=== PATIENT | male | born 1985 | race African-American/Black ===

== ENCOUNTER 2016-08-14 01:29 | Inpatient (IN) | payer OTHER ==
[~2016-08-14] VITALS: Ht 188 cm; Wt 71.2 kg
[~2016-08-14 01:29] MED LIST: ACIDOPHILUS1 EAC4 PER TUBE; ALBUTEROL0.63 MG/3 INH; ALBUTEROL2.5 MG/0.1 INH; AMOXICILLIN PER TUBE; ARTIFICIAL TEA1 EACH OPHTHALMIC; ASPIRIN325 PER TUBE; ATIVAN0.5 MG PER TUBE; BISACODYL SUPP10 MG RECTAL; CHOLESTYRAMINE P4 GM PER TUBE; FAMOTIDINE PER TUBE; FAMOTIDINE40 MG/5 ML PER TUBE; GLUCERNA 1.21500 ML PO; JUVEN PACKET1 EACH PER TUBE; KEPPRA 100100 MG/M1 PER TUBE; LEVAQUIN 500 M500 M1 PER TUBE; LEVETIRACETA PER TUBE; LIORESAL 10 MG10 MG PER TUBE; MAPAP160 MG/51 PER TUBE; MIRALAX17 GM PO; MULTI-DELYN5 ML PER TUBE; NATURAL BALANCE15 M1; ONDANSETRON HCL4 M2 PER TUBE; PERIDEX 0.12%473 M1 PO; PROPRANOLO40 MG/5 ML PER TUBE; VITAMIN C500 MG/15 PER TUBE; VITAMINC500 PER TUBE; ZINC SULFATE 2220 M1 PER TUBE; ZOFRAN4 MG/5 ML PER TUBE; ZOSYN 3.3753.375 GM IV; [UNRECOGNIZED DRUG - SUPPLY] TOP
[2016-08-14 01:36] VITALS: BP 118/81
[2016-08-14 02:08] LABS: EOSINOPHILS 3.4 % (0.0-3.0); HEMOGLOBIN 10.9 gm/dL (14.0-18.0)
[2016-08-14 02:10] LABS: ABSOLUTE NEUTROPHILS 8.7 thou/uL (1.4-8.2); BASOPHILS 1.5 % (0.0-2.0); HEMATOCRIT 35.3 % (42.0-52.0); LYMPHOCYTES 29.2 % (24.0-44.0); MCH 23.1 pg (26.0-34.0); MCHC 30.9 % (28.0-37.0); MONOCYTES 6.1 % (1.0-8.0); PLATELET COUNT 284 thou/uL (150-400); POLYS 59.8 % (36.0-66.0); RBC 4.71 mil/uL (4.50-6.00); WBC 14.5 thou/uL (4.0-11.0)
[2016-08-14 02:12] LABS: MANUAL DIFF NO
[2016-08-14 02:13] LABS: CALCIUM 9.2 mg/dL (8.5-10.1); CREATININE 0.6 mg/dL (0.6-1.3); POTASSIUM 4.2 mmol/L (3.5-5.1)
[2016-08-14] MEDS ORDERED: VITAMINC500 PER TUBE (02:36)
[2016-08-14] MEDS ORDERED: METFORMIN HCL500 M2 PO (03:07)
[2016-08-14 03:33] LABS: URINE BILIRUBIN NEGATIVE (Negative); URINE BLOOD 3+ (Negative); URINE COLOR YELLOW; URINE GLUCOSE-RANDOM* NEGATIVE (Negative); URINE KETONES NEGATIVE (Negative); URINE LEUKOCYTES-REFLEX NEGATIVE (Negative); URINE PROTEIN (DIPSTICK) NEGATIVE (Negative); URINE SPECIFIC GRAVITY 1.025 (1.003-1.035); URINE UROBILINOGEN 0.2 E.U./dl (0.2-1.0)
[2016-08-14 03:54] LABS: ANISOCYTOSIS 1+; HYPOCHROMASIA 1+; LARGE PLATELETS OCCASIONAL; MICROCYTES 2+
[2016-08-14 03:59] LABS: SQUAMOUS 0-3 Few /LPF (0-3); URINE RBC >20 Many /HPF (0-2); URINE WBC-REFLEX 0-5 Rare /HPF (0-5)
[2016-08-14 04:00] LABS: CASTS None Seen /LPF (None Seen); CRYSTALS None Seen /LPF (None Seen)
[2016-08-14 04:41] VITALS: BP 120/79
[2016-08-14 08:00] VITALS: BP 115/78
[2016-08-14 12:15] VITALS: BP 128/74
[2016-08-14 15:45] VITALS: BP 107/78
[2016-08-14 20:25] VITALS: BP 113/73
[2016-08-15 03:59] LABS: ABSOLUTE NEUTROPHILS 5.4 thou/uL (1.4-8.2); BASOPHILS 0.5 % (0.0-2.0); EOSINOPHILS 4.9 % (0.0-3.0); HEMATOCRIT 31.5 % (42.0-52.0); HEMOGLOBIN 9.7 gm/dL (14.0-18.0); LYMPHOCYTES 32.1 % (24.0-44.0); MCHC 30.9 % (28.0-37.0); MCV 74.3 fL (80.0-100.0); MONOCYTES 5.1 % (1.0-8.0); PLATELET COUNT 220 thou/uL (150-400); POLYS 57.4 % (36.0-66.0); RBC 4.24 mil/uL (4.50-6.00); RDW 17.7 % (10.5-14.5); WBC 9.4 thou/uL (4.0-11.0)
[2016-08-15 04:16] LABS: MANUAL DIFF NO
[2016-08-15 04:27] LABS: ALBUMIN 2.4 g/dL (3.4-5.0); CALCIUM 8.6 mg/dL (8.5-10.1); CREATININE 0.5 mg/dL (0.6-1.3); POTASSIUM 3.9 mmol/L (3.5-5.1); TOTAL BILIRUBIN 0.4 mg/dL (<0.1-1.0); TOTAL PROTEIN 8.7 g/dL (6.4-8.2)
[2016-08-15 04:52] VITALS: BP 110/73
[2016-08-15 07:34] LABS: PLATELET ESTIMATE NORMAL
[2016-08-15 07:36] LABS: ANISOCYTOSIS 1+; HYPOCHROMASIA 1+; MACROCYTES 1+
[2016-08-15 08:00] VITALS: BP 164/88
[2016-08-15 11:00] VITALS: BP 150/85
[2016-08-15 19:46] VITALS: BP 147/81
[2016-08-16 06:09] VITALS: BP 129/83
[2016-08-16 08:00] VITALS: BP 151/93
[2016-08-16 08:02] LABS: ABSOLUTE NEUTROPHILS 5.3 thou/uL (1.4-8.2); BASOPHILS 1.1 % (0.0-2.0); EOSINOPHILS 4.7 % (0.0-3.0); HEMATOCRIT 33.9 % (42.0-52.0); HEMOGLOBIN 10.8 gm/dL (14.0-18.0); LYMPHOCYTES 28.8 % (24.0-44.0); MCH 23.3 pg (26.0-34.0); MCHC 31.8 % (28.0-37.0); MCV 73.3 fL (80.0-100.0); MONOCYTES 5.7 % (1.0-8.0); PLATELET COUNT 239 thou/uL (150-400); POLYS 59.7 % (36.0-66.0); RBC 4.63 mil/uL (4.50-6.00); WBC 8.9 thou/uL (4.0-11.0)
[2016-08-16 08:08] LABS: MANUAL DIFF NO
[2016-08-16 08:17] LABS: ALBUMIN 2.7 g/dL (3.4-5.0); CALCIUM 8.9 mg/dL (8.5-10.1); CREATININE 0.5 mg/dL (0.6-1.3); PHOSPHORUS 3.2 mg/dL (2.5-4.9); POTASSIUM 3.9 mmol/L (3.5-5.1)
[2016-08-16 10:07] LABS: ANISOCYTOSIS 1+; HYPOCHROMASIA 1+; MICROCYTES 2+; POLYCHROMASIA OCCASIONAL
[2016-08-16 16:00] VITALS: BP 137/61
[2016-08-16 20:15] VITALS: BP 137/64
[2016-08-17 05:51] VITALS: BP 159/74
[2016-08-17 08:23] LABS: ALBUMIN 2.8 g/dL (3.4-5.0); CALCIUM 8.9 mg/dL (8.5-10.1); CREATININE 0.6 mg/dL (0.6-1.3); MAGNESIUM 2.2 mg/dL (1.8-2.4); POTASSIUM 4.3 mmol/L (3.5-5.1); TOTAL BILIRUBIN 0.3 mg/dL (<0.1-1.0); TOTAL PROTEIN 9.1 g/dL (6.4-8.2)
[2016-08-17 17:55] VITALS: BP 138/72
[2016-08-17 21:00] VITALS: BP 121/68
[2016-08-18 01:45] VITALS: BP 92/58
[2016-08-18 05:30] VITALS: BP 106/68
[2016-08-18 06:00] VITALS: BP 128/75
[2016-08-18 08:17] VITALS: BP 99/59
[2016-08-18] MEDS ORDERED: AUGMENTIN400 MG/53 PER TUBE (10:15)
== END 2016-08-18 15:07 | DRG 871 ==
LOC: ER 01:29 → EROBS 04:16 → 2N 04:16 → 4N 08-15 17:52
PROVIDERS: Emergency Medicine; Hospitalist
DX: A41.4 Sepsis due to anaerobes (principal); G82.50 Quadriplegia, unspecified; J18.9 Pneumonia, unspecified organism; E43 Unspecified severe protein-calorie malnutrition; N39.0 Urinary tract infection, site not specified; E87.0 Hyperosmolality and hypernatremia; J96.11 Chronic respiratory failure with hypoxia; J90 Pleural effusion, not elsewhere classified; D69.6 Thrombocytopenia, unspecified; E86.0 Dehydration; E11.22 Type 2 diabetes mellitus with diabetic chronic kidney disease; N18.9 Chronic kidney disease, unspecified; K21.9 Gastro-esophageal reflux disease without esophagitis; R41.82 Altered mental status, unspecified; L89.159 Pressure ulcer of sacral region, unspecified stage; S61.002A Unspecified open wound of left thumb without damage to nail, initial encounter; Y93.89 Activity, other specified; Z93.1 Gastrostomy status; Z89.612 Acquired absence of left leg above knee; Y92.89 Other specified places as the place of occurrence of the external cause; Z93.0 Tracheostomy status; Z68.20 Body mass index [BMI] 20.0-20.9, adult
CPT/HCPCS: 10081; 10790

== ENCOUNTER 2016-11-06 06:59 | Emergency (ER) | payer OTHER ==
[~2016-11-06] VITALS: Ht 180.3 cm; Wt 77.1 kg
[~2016-11-06 06:59] MED LIST changes: +AUGMENTIN400 MG/53 PER TUBE; +METFORMIN HCL500 M2 PO
== END 2016-11-06 07:10 | disposition home or self-care (01) ==
LOC: ER 06:59
DX: K94.23 Gastrostomy malfunction (principal); E11.22 Type 2 diabetes mellitus with diabetic chronic kidney disease; N18.9 Chronic kidney disease, unspecified; K21.9 Gastro-esophageal reflux disease without esophagitis; Z86.69 Personal history of other diseases of the nervous system and sense organs

== ENCOUNTER 2017-05-08 16:42 | Emergency (ER) | payer OTHER ==
[~2017-05-08] VITALS: Ht 182.9 cm; Wt 59.0 kg
[2017-05-08 16:44] VITALS: BP 110/75
[2017-05-08 17:34] LABS: ABSOLUTE NEUTROPHILS 8.5 thou/uL (1.4-8.2); EOSINOPHILS 2.6 % (0.0-3.0); HEMATOCRIT 44.6 % (42.0-52.0); HEMOGLOBIN 14.3 gm/dL (14.0-18.0); LYMPHOCYTES 28.7 % (24.0-44.0); MCH 24.8 pg (26.0-34.0); MCV 77.6 fL (80.0-100.0); MONOCYTES 5.4 % (1.0-8.0); PLATELET COUNT 226 thou/uL (150-400); POLYS 62.3 % (36.0-66.0); RBC 5.75 mil/uL (4.50-6.00); RDW 20.1 % (10.5-14.5); WBC 13.7 thou/uL (4.0-11.0)
[2017-05-08 17:42] LABS: MANUAL DIFF NO
[2017-05-08 17:47] LABS: CALCIUM 9.3 mg/dL (8.5-10.1); CREATININE 0.4 mg/dL (0.7-1.3); POTASSIUM 4.8 mmol/L (3.5-5.1)
[2017-05-08 17:49] LABS: INR 1.1; PROTIME 11.7 Seconds (9.3-11.4)
== END 2017-05-09 10:36 ==
LOC: ER 16:42 → EROBS 22:03 → ER 05-09 10:36
PROVIDERS: Emergency Medicine
DX: T82.898A Other specified complication of vascular prosthetic devices, implants and grafts, initial encounter (principal); Y92.89 Other specified places as the place of occurrence of the external cause

== ENCOUNTER 2017-08-25 15:51 | Inpatient (IN) | payer OTHER ==
[~2017-08-25] VITALS: Ht 180.3 cm; Wt 72.6 kg
--- NOTE | ~2017-08-25 | S ---
[facility] [place] [address] SURGICAL PATH RPT PROCEDURE Name: YULISSACOTY Room #: 407-P ADM IN M.R.#: [id number] Admission: 08/25/17 Date of : 85 Discharge: Report #: [id number] Path Case #: [id number] PATHOLOGY REPORT COLLECTION DATE: 08/28/2017 RECEIVED DATE: 08/28/2017 SUBMITTING PHYS: Dr. Ezra Lauren OTHER PHYS: Dr. Archie Palumbo SPECIMEN(S) RECEIVED: A.Peripheral smear * * * * * * * * * * * * FINAL DIAGNOSIS: Peripheral blood smear: - Moderate to severe normocytic to mildly microcytic anemia and mild thrombocytopenia. (see comment) COMMENT: Overall, the peripheral blood has moderate to severe normocytic to mildly microcytic anemia and mild thrombocytopenia. The WBC count and differential are within the normal reference ranges. The etiology of the findings is unclear based entirely on slide review. Potential causes of normocytic anemia include anemia of chronic disease, treated and/or compensated vitamin and mineral deficiencies, acute blood loss, dilutional, and primary bone marrow disorders. Potential causes of microcytic anemia include iron deficiency and thalassemia. Potential causes of thrombocytopenia include immune and non-immune platelet destruction, drug and/or toxic exposures, dilutional and primary bone marrow disorders. Correlation with clinical history and additional laboratory data is recommended. (CLW:; 08/31/2017) PATHOLOGIST: Jessica Clark M.D. REPORT ELECTRONICALLY SIGNED BY: Jessica Clark M.D. DATE/TIME: 08/31/2017 14:35 * * * * * * * * * * * * MICROSCOPIC DESCRIPTION: CBC Data (08/28/17): WBC 5,100 /uL, RBC 3.32, hemoglobin 8.8 g/dL, hematocrit 26.8%, MCV 80.7 fL, MCH 26.4 pg, MCHC 32.8 g/dL, RDW 16.6%. Platelet count 100,000 /uL. Automated white blood cell differential: segs 62.1%, lymphs 29.7%, monos 5.8%, eos 2.0%, and basos 0.4%. Peripheral Blood Smear: Cytomorphological examination of the Read's stained peripheral [address] [address] SURGICAL PATH RPT PROCEDURE Name: COTY SIMS Room #: 407-P ADM IN M.R.#: [id number] Admission: 08/25/17 Date of : 85 Discharge: Report #: [id number] Path Case #: [id number] blood smear confirms the provided data. Red blood cells show moderate to severe normocytic to mildly microcytic anemia with mild anisocytosis. No significant poikilocytosis is identified. No schistocytes or microspherocytes are seen. White blood cells are predominantly segmented neutrophils and are without significant dyspoiesis or significant left shift. Reactive changes are noted. Lymphocytes are predominantly small, round, and mature appearing with condensed chromatin and scant cytoplasm with admixed large granular lymphocytes and occasional reactive appearing lymphocytes. On scanning, no markedly atypical lymphoid cells are seen. Monocytes are mature. Platelets are mildly decreased in number and mainly normal in morphology with rare larger platelets noted. GROSS PATHOLOGY: Received are four peripheral blood smears (two Read's stained and two unstained) all labeled, Coty Sims. (CLW:mgr; 08/31/2017) CLINICAL HISTORY: 32 year-old man with anemia, thrombocytopenia, and fever. Morphologic review of the peripheral blood smear is requested by the patient's physician. INITIAL CPT CODE(S): A; [place] Professional services performed by [employer] at [facility] [address], [place] [address] Technical services performed by [employer] at [address] [place] [address], [address], [place] [address]. [facility] [address] [place] [address] PHONE: [phone] DIRECTOR: Lc Arriaza M.D. * * * END OF REPORT * * *
--- NOTE | ~2017-08-25 | EKG ---
[address] [address] ELECTROCARDIOGRAM REPORT Name: COTY DUENAS Room #: 407-P ADM IN M.R.#: [id number] Admission: 08/25/17 Attend Phys: Ezra Lauren MD Discharge: Date of : 85 Report #: [id number] THIS REPORT FOR: //name// [facility] Test Date: 2017-08-27 Test Time: 00:38:51 Pat Name: COTY DUENAS Department: Room: 407 P Gender: M [employer]: jacob : 1985 Requested By: Alycia Petty Order Number: [id number] MD: Sebastian Billings Measurements Intervals Sterling Rate: 130 P: 64 PA: 120 QRS: 5 QRSD: 76 T: -2 QT: 313 QTc: 460 Interpretive Statements Sinus tachycardia LVH by voltage No previous ECG available for comparison Electronically Signed On 08-27-2017 7:59:58 CLEARING HAND by Sebastian Billings [email or web address] <ELECTRONICALLY SIGNED> By: Sebastian Billings MD, [facility] 08/27/17 0759 0038 0038 Sebastian Billings MD, FACC /EPI
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
--- NOTE | ~2017-08-25 | HC ---
[facility] [place] [address] CONSULTATION Name: YULISSACOTY BO Room #: 407-P ADM IN M.R.#: [id number] Admission: 08/25/17 Attend Phys: Ezra Lauren MD Discharge: Date of : 85 Report #: [id number] THIS REPORT FOR: //name// CC: Cotyreed Palumbo Ezra Lauren DATE OF SERVICE: 08/26/2017 CHIEF COMPLAINT: Sacral and gluteal pressure ulcerations. HISTORY OF PRESENT ILLNESS: This is a 32-year-old male patient admitted to the hospital. He is from [facility]. He has a history of a trach and is contracted. He has previous left BKA and was noted to have multiple pressure ulcerations. He is admitted with fever and is currently being worked up for such. PAST MEDICAL HISTORY: Positive for tracheostomy and gastrostomy. He has a history of quadriplegia, contractures, left above-knee amputation, chronic kidney disease, chronic renal failure, chronic respiratory failure with hypoxia, thrombocytopenia, diabetes mellitus, gastroesophageal reflux disease and history of multiple pressure ulcerations. ALLERGIES: None. FAMILY HISTORY: Noncontributory. REVIEW OF SYSTEMS: Unobtainable due to the patient's medical condition. MEDICATIONS: The patient's medications include cholestyramine, baclofen, multivitamin, aspirin, ketaconazole, famotidine, guaifenesin, levetiracetam, morphine and propranolol. PHYSICAL EXAMINATION: VITAL SIGNS: At this time include pulse rate of 119, respiratory rate 21, blood pressure 122/63 and temperature 100.2. GENERAL: This is a chronically ill-appearing male patient who is minimally responsive. HEENT: Normocephalic. Nose and throat appear clear. NECK: Demonstrates tracheostomy. LUNGS: Coarse. HEART: Regular rhythm. ABDOMEN: Soft. Gastrostomy noted. GENITOURINARY: Pelvic region demonstrates what appears to be a stage 4 pressure ulceration to the left side of the sacral region. Bone is palpable in the base. There is a little bit of undermining. This area is surrounded by what appears to be stage 3 pressure ulceration and also noted to be a stage 3 pressure [facility] [address] [place] [address] CONSULTATION Name: COTY DUENAS Room #: 407-P ADM IN M.R.#: [id number] Admission: 08/25/17 Attend Phys: Ezra Lauren MD Discharge: Date of : 85 Report #: [id number] ulceration on the right gluteal region. EXTREMITIES: He has a healed left above-knee amputation. CLINICAL IMPRESSION: 1. Fever, possibly secondary to pressure ulcerations versus pulmonary versus urinary tract. 2. Stage 4 sacral pressure ulceration. 3. Stage 3 pressure ulcer in bilateral gluteal region. 4. Respiratory failure. 5. Diabetes mellitus. 6. Severe protein-calorie malnutrition. 7. Tracheostomy. 8. Quadriplegia with severe contractures. RECOMMENDATIONS: At this point in time, we will recommend packing the sacral pressure ulceration with silver alginate. We will recommend Xeroform gauze to the gluteal region as they bleed readily, so we will try this as a nonstick-type dressing. He will need to be turned and repositioned every 2 hours, need aggressive nutritional support for wound healing and a Prevalon boot or PRAFO boot to the right lower extremity. Questions have been answered. I appreciate being asked to see him in consultation. <ELECTRONICALLY SIGNED> By: Dre Chavez MD 08/27/17 0834 1859 [id number] Dre Chavez MD /nt
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
[~2017-08-25 15:51] MED LIST changes: +ARTIFICIAL TEAR15 M1 OPHTHALMIC; +ASPIR 8181 MG PER TUBE; +DIOCTO50 MG/5 ML PER TUBE; +HYDROCERIN LOT236 ML TOP; +KETOCONAZOLE15 GM TOP; +LEVETIRACE100 MG/1 M PER TUBE; +MSL20MG/ML SUBLING; +PROPRANOLOL 20M20 M1 PER TUBE; +ROBITUSSIN100 MG/53 PER TUBE; +[UNRECOGNIZED DRUG - OTHER] PER TUBE
[2017-08-25 15:52] VITALS: BP 105/66
[2017-08-25 16:08] LABS: URINE BILIRUBIN NEGATIVE (Negative); URINE BLOOD 2+ (Negative); URINE CLARITY CLEAR; URINE COLOR YELLOW; URINE GLUCOSE-RANDOM* NEGATIVE (Negative); URINE KETONES NEGATIVE (Negative); URINE LEUKOCYTES NEGATIVE (Negative); URINE NITRITE NEGATIVE (Negative); URINE PROTEIN (DIPSTICK) TRACE (Negative); URINE SPECIFIC GRAVITY 1.025 (1.005-1.035); URINE UROBILINOGEN 0.2 E.U./dl (0.2-1.0)
[2017-08-25 16:19] LABS: FINE GRANULAR CASTS 0-3 Few /LPF (None Seen); MUCUS 4-6 Moderate strn/LPF (None Seen); SQUAMOUS 0-3 Few /LPF (0-3)
[2017-08-25 16:20] LABS: AMORPHOUS URATES Many /LPF (None Seen); BACTERIA >30 Many /HPF (None Seen); URINE WBC 6-15 Few /HPF (0-5)
[2017-08-25 17:10] LABS: ABSOLUTE NEUTROPHILS 5.2 thou/uL (1.4-8.2); BASOPHILS 0.5 % (0.0-2.0); EOSINOPHILS 1.5 % (0.0-3.0); HEMATOCRIT 32.8 % (42.0-52.0); HEMOGLOBIN 10.5 gm/dL (14.0-18.0); MCH 26.2 pg (26.0-34.0); MCHC 31.9 g/dL (28.0-37.0); MCV 82.2 fL (80.0-100.0); MONOCYTES 4.2 % (1.0-8.0); POLYS 61.8 % (36.0-66.0); RBC 3.99 mil/uL (4.50-6.00); RDW 17.2 % (10.5-14.5); WBC 8.3 thou/uL (4.0-11.0)
[2017-08-25 17:18] LABS: CALCIUM 8.7 mg/dL (8.5-10.1); CREATININE 0.9 mg/dL (0.7-1.3); POTASSIUM 3.6 mmol/L (3.5-5.1)
[2017-08-25 17:24] LABS: ALBUMIN 2.2 g/dL (3.4-5.0); TOTAL BILIRUBIN 0.3 mg/dL (<0.1-1.0); TOTAL PROTEIN 7.7 g/dL (6.4-8.2)
[2017-08-25 17:54] LABS: PLATELET COUNT 72 thou/uL (150-400); PLATELET ESTIMATE DECREASED
[2017-08-25 17:55] LABS: ANISOCYTOSIS 2+; LARGE PLATELETS FEW; MICROCYTES 2+
[2017-08-25 17:56] LABS: MACROCYTES 1+; POLYCHROMASIA SLIGHT
[2017-08-25 19:50] VITALS: BP 108/45
[2017-08-26] VITALS: BP 108/45
[2017-08-26 04:48] LABS: ABSOLUTE NEUTROPHILS 3.5 thou/uL (1.4-8.2); BASOPHILS 0.3 % (0.0-2.0); EOSINOPHILS 2.4 % (0.0-3.0); HEMATOCRIT 24.5 % (42.0-52.0); MCH 26.5 pg (26.0-34.0); MCHC 32.3 g/dL (28.0-37.0); MCV 82.2 fL (80.0-100.0); MONOCYTES 4.9 % (1.0-8.0); POLYS 57.4 % (36.0-66.0); RBC 2.99 mil/uL (4.50-6.00); RDW 17.4 % (10.5-14.5)
[2017-08-26 04:51] LABS: HEMOGLOBIN 7.9 gm/dL (14.0-18.0)
[2017-08-26 05:00] LABS: CALCIUM 7.5 mg/dL (8.5-10.1); CREATININE 0.6 mg/dL (0.7-1.3); POTASSIUM 3.6 mmol/L (3.5-5.1)
[2017-08-26 06:01] LABS: LARGE PLATELETS FEW
[2017-08-26 06:03] LABS: ANISOCYTOSIS 1+; PLATELET COUNT 53 thou/uL (150-400); PLATELET ESTIMATE DECREASED
[2017-08-26 06:04] LABS: MICROCYTES 1+
[2017-08-26 07:42] VITALS: BP 118/65
[2017-08-26 15:48] VITALS: BP 122/63
[2017-08-26 20:00] VITALS: BP 111/62
[2017-08-27 00:28] LABS: BE(vivo) -3.7 mmol/L (-2 to +3); HCO3 20.9 mmol/L (22.0-26.0); PCO2 34.1 mmHg (35.0-45.0); PO2 263.6 mmHg (80.0-100.0); pH 7.405 (7.360-7.450); sO2 99.6 % (92.0-98.0)
[2017-08-27 05:17] LABS: ABSOLUTE NEUTROPHILS 3.4 thou/uL (1.4-8.2); BASOPHILS 0.9 % (0.0-2.0); EOSINOPHILS 1.5 % (0.0-3.0); HEMATOCRIT 27.3 % (42.0-52.0); HEMOGLOBIN 8.8 gm/dL (14.0-18.0); LYMPHOCYTES 20.5 % (24.0-44.0); MCH 26.6 pg (26.0-34.0); MCHC 32.3 g/dL (28.0-37.0); MCV 82.2 fL (80.0-100.0); MONOCYTES 5.8 % (1.0-8.0); POLYS 71.3 % (36.0-66.0); RBC 3.33 mil/uL (4.50-6.00); WBC 4.7 thou/uL (4.0-11.0)
[2017-08-27 05:24] LABS: CALCIUM 7.6 mg/dL (8.5-10.1); CREATININE 0.5 mg/dL (0.7-1.3); POTASSIUM 3.4 mmol/L (3.5-5.1)
[2017-08-27 06:00] VITALS: BP 110/62
[2017-08-27 06:10] LABS: ANISOCYTOSIS 1+; LARGE PLATELETS OCCASIONAL; PLATELET COUNT 68 thou/uL (150-400); PLATELET ESTIMATE DECREASED
[2017-08-27 06:11] LABS: POLYCHROMASIA OCCASIONAL
[2017-08-27 09:39] VITALS: BP 121/68
[2017-08-27 16:00] VITALS: BP 122/88
[2017-08-27 20:00] VITALS: BP 127/64
[2017-08-27 23:32] LABS: APTT 29.3 Seconds (24.5-32.8); FIBRINOGEN 438.2 mg/dL (210-360); INR 1.3; PROTIME 13.4 Seconds (9.3-11.4)
[2017-08-27 23:44] VITALS: BP 106/71
[2017-08-28 03:03] LABS: ABSOLUTE NEUTROPHILS 2.9 thou/uL (1.4-8.2); BASOPHILS 0.4 % (0.0-2.0); EOSINOPHILS 2.2 % (0.0-3.0); HEMATOCRIT 26.1 % (42.0-52.0); HEMOGLOBIN 8.4 gm/dL (14.0-18.0); LYMPHOCYTES 28.2 % (24.0-44.0); MCH 26.1 pg (26.0-34.0); MCHC 32.3 g/dL (28.0-37.0); MCV 80.8 fL (80.0-100.0); MONOCYTES 5.9 % (1.0-8.0); PLATELET COUNT 80 thou/uL (150-400); POLYS 63.3 % (36.0-66.0); RBC 3.23 mil/uL (4.50-6.00); RDW 16.5 % (10.5-14.5); WBC 4.5 thou/uL (4.0-11.0)
[2017-08-28 03:10] LABS: CALCIUM 7.7 mg/dL (8.5-10.1); CREATININE 0.5 mg/dL (0.7-1.3); MAGNESIUM 1.4 mg/dL (1.8-2.4)
[2017-08-28 03:15] LABS: POTASSIUM 2.6 mmol/L (3.5-5.1)
[2017-08-28 04:00] VITALS: BP 116/68
[2017-08-28 04:15] LABS: ANISOCYTOSIS 1+; LARGE PLATELETS OCCASIONAL
[2017-08-28 04:16] LABS: PLATELET ESTIMATE DECREASED
[2017-08-28 07:21] VITALS: BP 122/62
[2017-08-28 08:18] LABS: TSH 4.004 uIU/mL (0.358-3.740)
[2017-08-28 11:11] LABS: % SATURATION 22 % (20-39); IRON 39 ug/dL (65-175); TIBC 176 ug/dL (250-450)
[2017-08-28 16:05] VITALS: BP 94/42
[2017-08-28 19:32] LABS: MAGNESIUM 1.7 mg/dL (1.8-2.4)
[2017-08-28 19:47] LABS: POTASSIUM 2.8 mmol/L (3.5-5.1)
[2017-08-28 20:40] VITALS: BP 119/55
[2017-08-28 23:57] VITALS: BP 130/63
[2017-08-29 04:00] VITALS: BP 106/48
[2017-08-29 05:45] LABS: ABSOLUTE NEUTROPHILS 2.8 thou/uL (1.4-8.2); BASOPHILS 0.2 % (0.0-2.0); EOSINOPHILS 2.3 % (0.0-3.0); HEMATOCRIT 24.6 % (42.0-52.0); HEMOGLOBIN 8.2 gm/dL (14.0-18.0); LYMPHOCYTES 28.1 % (24.0-44.0); MCH 26.7 pg (26.0-34.0); MCHC 33.2 g/dL (28.0-37.0); MCV 80.4 fL (80.0-100.0); MONOCYTES 6.4 % (1.0-8.0); PLATELET COUNT 101 thou/uL (150-400); RBC 3.06 mil/uL (4.50-6.00); RDW 16.8 % (10.5-14.5); WBC 4.5 thou/uL (4.0-11.0)
[2017-08-29 06:07] LABS: CALCIUM 8.1 mg/dL (8.5-10.1); CREATININE 0.5 mg/dL (0.7-1.3); MAGNESIUM 1.9 mg/dL (1.8-2.4)
[2017-08-29 08:00] VITALS: BP 111/72
[2017-08-29 16:08] VITALS: BP 97/62
[2017-08-29 19:23] VITALS: BP 93/58
[2017-08-30 03:53] LABS: HEMATOCRIT 26.5 % (42.0-52.0); HEMOGLOBIN 8.6 gm/dL (14.0-18.0); MCH 26.3 pg (26.0-34.0); MCHC 32.6 g/dL (28.0-37.0); MCV 80.7 fL (80.0-100.0); RBC 3.28 mil/uL (4.50-6.00); RDW 16.8 % (10.5-14.5); WBC 5.3 thou/uL (4.0-11.0)
[2017-08-30 04:08] VITALS: BP 115/79
[2017-08-30 05:03] LABS: ALBUMIN 2.1 g/dL (3.4-5.0); CALCIUM 7.9 mg/dL (8.5-10.1); CREATININE 0.4 mg/dL (0.7-1.3); TOTAL BILIRUBIN 0.4 mg/dL (<0.1-1.0); TOTAL PROTEIN 6.9 g/dL (6.4-8.2)
[2017-08-30 07:39] VITALS: BP 100/50
[2017-08-30 15:29] VITALS: BP 109/54
[2017-08-30 19:44] VITALS: BP 119/70
[2017-08-30 23:38] VITALS: BP 112/64
[2017-08-31 01:55] LABS: HEMOGLOBIN 8.7 gm/dL (14.0-18.0); MCH 26.6 pg (26.0-34.0); MCHC 32.3 g/dL (28.0-37.0); MCV 82.3 fL (80.0-100.0); RBC 3.28 mil/uL (4.50-6.00); RDW 16.9 % (10.5-14.5); WBC 5.8 thou/uL (4.0-11.0)
[2017-08-31 02:13] LABS: ALBUMIN 2.1 g/dL (3.4-5.0); CALCIUM 7.9 mg/dL (8.5-10.1); CREATININE 0.5 mg/dL (0.7-1.3); POTASSIUM 3.6 mmol/L (3.5-5.1); TOTAL BILIRUBIN 0.2 mg/dL (<0.1-1.0); TOTAL PROTEIN 6.7 g/dL (6.4-8.2)
[2017-08-31 03:55] VITALS: BP 125/71
[2017-08-31 08:00] VITALS: BP 136/71
[2017-08-31 16:00] VITALS: BP 129/67
[2017-08-31] MEDS ORDERED: CEFEPIME-D1 GM/50 ML IV (17:42)
[2017-08-31] MEDS ORDERED: VANCOMYCIN1 GM/1001 IV (17:42)
[2017-08-31] MEDS ORDERED: FLAGYL500 MG IVPB (17:42)
[2017-08-31 20:10] VITALS: BP 97/68
[2017-09-01 04:20] VITALS: BP 98/67
[2017-09-01 07:48] VITALS: BP 116/64
[2017-09-01] MEDS ORDERED: PROPRANOLOL 20M20 M1 PER TUBE (13:32)
== END 2017-09-01 15:25 | DRG 871 ==
LOC: ER 15:51 → EROBS 17:46 → 4N 19:55
PROVIDERS: Hospitalist; Internal Medicine; Internal Medicine Endocrinology, Diabetes & Metabolism; Internal Medicine Hematology & Oncology; Nurse Practitioner; Nurse Practitioner Family
PROC: 05HC33Z Insertion of Infusion Device into Left Basilic Vein, Percutaneous Approach (ICD-10-PCS; principal; 2017-08-28)
DX: A41.9 Sepsis, unspecified organism (principal); E43 Unspecified severe protein-calorie malnutrition; G82.50 Quadriplegia, unspecified; L89.154 Pressure ulcer of sacral region, stage 4; L89.323 Pressure ulcer of left buttock, stage 3; L89.313 Pressure ulcer of right buttock, stage 3; E87.0 Hyperosmolality and hypernatremia; N39.0 Urinary tract infection, site not specified; J96.10 Chronic respiratory failure, unspecified whether with hypoxia or hypercapnia; E11.22 Type 2 diabetes mellitus with diabetic chronic kidney disease; R65.20 Severe sepsis without septic shock; N28.1 Cyst of kidney, acquired; B95.2 Enterococcus as the cause of diseases classified elsewhere; B95.62 Methicillin resistant Staphylococcus aureus infection as the cause of diseases classified elsewhere; E87.6 Hypokalemia; K21.9 Gastro-esophageal reflux disease without esophagitis; N18.9 Chronic kidney disease, unspecified; D64.9 Anemia, unspecified; D69.6 Thrombocytopenia, unspecified; K75.9 Inflammatory liver disease, unspecified; Z68.22 Body mass index [BMI] 22.0-22.9, adult; Z93.1 Gastrostomy status; Z93.0 Tracheostomy status; Z89.612 Acquired absence of left leg above knee; Z79.82 Long term (current) use of aspirin; Z79.899 Other long term (current) drug therapy
CPT/HCPCS: 10790; 27000

== ENCOUNTER 2017-12-29 02:30 | Inpatient (IN) | payer OTHER ==
[~2017-12-29] VITALS: Ht 167.6 cm; Wt 72.4 kg
[2017-12-29] VITALS (8 sets, daily range): BP systolic 90–140; BP diastolic 50–92
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
--- NOTE | ~2017-12-29 | HC ---
[facility] [place] [address] CONSULTATION Name: COTY DUENAS Room #: 360-P [facility] IN M.R.#: [id number] Admission: 12/29/17 Attend Phys: Maren Kinney Discharge: Date of : 85 Report #: [id number] THIS REPORT FOR: //name// [facility]: [facility] DATE OF SERVICE: 12/29/2017 CHIEF COMPLAINT: Sacral and gluteal pressure ulceration. HISTORY OF PRESENT ILLNESS: This is a 32-year-old male patient who is familiar to the wound care service from previous hospitalization. The patient has a history of quadriplegia due to spinal cord injury. He has chronic respiratory failure, chronic gluteal and sacral pressure ulcerations. He is admitted with low-grade fever and tracheostomy dislodgement. He is admitted and I have been asked to see him with regard to wound care. He is not able to provide any information about himself. PAST MEDICAL HISTORY: Positive for quadriplegia, recurrent urinary tract infection, chronic tracheostomy and history of PEG tube. ALLERGIES: None. MEDICATIONS: Include propranolol, cholestyramine, baclofen, aspirin, ketaconazole, famotidine, levetiracetam and morphine. SOCIAL HISTORY: Negative for alcohol or tobacco use. FAMILY HISTORY: Unknown. REVIEW OF SYSTEMS: A 14-point review of systems is unobtainable due to the patient's decreased level of consciousness. PHYSICAL EXAMINATION: VITAL SIGNS: At this time include pulse 103, respiratory rate 17, blood pressure 105/77 and temperature 98.3. GENERAL: This is a chronically ill-appearing male patient, who appears to be in no distress. HEENT: Head normocephalic. NECK: Demonstrates tracheostomy. LUNGS: Coarse. HEART: Regular rate and rhythm. ABDOMEN: Soft, nontender. GENITOURINARY: Sacral and gluteal region demonstrates stage 3 pressure ulcerations to the coccyx and the left buttocks. These are clean, healthy, granulating and certainly smaller than the last time I saw him. No evidence of [facility] [address] [place] [address] CONSULTATION Name: COTY DUENAS Room #: 360-P [facility] IN M.R.#: [id number] Admission: 12/29/17 Attend Phys: Maren Kinney Discharge: Date of : 85 Report #: [id number] infection is noted. NEUROLOGIC: The patient has quadriplegia. He is unable to communicate. CLINICAL IMPRESSION: 1. Stage 3 pressure ulceration of the coccyx and left buttocks. 2. Quadriplegia secondary to spinal cord injury. 3. History of recurrent urinary tract infections. RECOMMENDATIONS: At this point in time, we will use calcium alginate and a foam dressing to be changed on a Thursday, Thursday and Thursday basis. The patient will need a low air loss mattress every 2 hours turning and positioning. I appreciate being asked to see him in consultation. <ELECTRONICALLY SIGNED> By: Dre Chavez MD 12/30/17 0814 1844 [id number] Dre Chavez MD /nt
[~2017-12-29 02:30] MED LIST changes: +CEFEPIME-D1 GM/50 ML IV; +FLAGYL500 MG IVPB; +VANCOMYCIN1 GM/1001 IV
[2017-12-29 03:09] LABS: ABSOLUTE NEUTROPHILS 12.5 thou/uL (1.4-8.2); BASOPHILS 0.6 % (0.0-2.0); EOSINOPHILS 2.1 % (0.0-3.0); HEMATOCRIT 44.8 % (42.0-52.0); HEMOGLOBIN 14.9 gm/dL (14.0-18.0); LYMPHOCYTES 18.9 % (24.0-44.0); MCH 27.6 pg (26.0-34.0); MCHC 33.2 g/dL (28.0-37.0); MCV 83.1 fL (80.0-100.0); MONOCYTES 7.6 % (1.0-8.0); PLATELET COUNT 211 thou/uL (150-400); POLYS 70.8 % (36.0-66.0); RBC 5.39 mil/uL (4.50-6.00); RDW 17.5 % (10.5-14.5); WBC 17.7 thou/uL (4.0-11.0)
[2017-12-29 03:14] LABS: URINE BILIRUBIN NEGATIVE (Negative); URINE BLOOD 3+ (Negative); URINE CLARITY CLEAR; URINE COLOR YELLOW; URINE GLUCOSE-RANDOM* NEGATIVE (Negative); URINE KETONES NEGATIVE (Negative); URINE PROTEIN (DIPSTICK) 2+ (Negative); URINE SPECIFIC GRAVITY <= 1.005 (1.005-1.035); URINE UROBILINOGEN 0.2 E.U./dl (0.2-1.0)
[2017-12-29 03:29] LABS: CALCIUM 9.6 mg/dL (8.5-10.1); CREATININE 0.7 mg/dL (0.7-1.3); POTASSIUM 4.2 mmol/L (3.5-5.1)
[2017-12-29 03:32] LABS: CASTS None Seen /LPF (None Seen); MUCUS 0-3 Light strn/LPF (None Seen); SQUAMOUS 0-3 Few /LPF (0-3); URINE LEUKOCYTES-REFLEX 3+ (Negative); URINE NITRITE-REFLEX POSITIVE (Negative); URINE RBC >20 Many /HPF (0-2)
[2017-12-29 03:33] LABS: BACTERIA-REFLEX >30 Many /HPF (None Seen); CRYSTALS None Seen /LPF (None Seen); TRIPLE PHOSPHATE CRYSTALS 4-10 Moderate /LPF (None Seen)
[2017-12-29 03:34] LABS: ALBUMIN 3.4 g/dL (3.4-5.0); DIRECT BILIRUBIN 0.2 mg/dL (<0.1-0.3); TOTAL BILIRUBIN 0.9 mg/dL (<0.1-1.0); TOTAL PROTEIN 10.8 g/dL (6.4-8.2)
[2017-12-29 04:02] LABS: ANISOCYTOSIS 1+; LARGE PLATELETS RARE
[2017-12-30] VITALS (7 sets, daily range): BP systolic 108–130; BP diastolic 65–91
[2017-12-30 06:45] LABS: ABSOLUTE NEUTROPHILS 5.2 thou/uL (1.4-8.2); BASOPHILS 0.8 % (0.0-2.0); EOSINOPHILS 5.6 % (0.0-3.0); HEMATOCRIT 36.7 % (42.0-52.0); LYMPHOCYTES 23.8 % (24.0-44.0); MCH 27.3 pg (26.0-34.0); MCHC 32.6 g/dL (28.0-37.0); MCV 83.9 fL (80.0-100.0); MONOCYTES 7.1 % (1.0-8.0); PLATELET COUNT 149 thou/uL (150-400); POLYS 62.7 % (36.0-66.0); RBC 4.38 mil/uL (4.50-6.00); RDW 16.7 % (10.5-14.5); WBC 8.3 thou/uL (4.0-11.0)
[2017-12-30 06:58] LABS: ALBUMIN 2.5 g/dL (3.4-5.0); CALCIUM 8.3 mg/dL (8.5-10.1); CREATININE 0.5 mg/dL (0.7-1.3); MAGNESIUM 1.9 mg/dL (1.8-2.4); POTASSIUM 3.7 mmol/L (3.5-5.1); TOTAL BILIRUBIN 0.7 mg/dL (<0.1-1.0); TOTAL PROTEIN 8.1 g/dL (6.4-8.2)
[2017-12-30 18:14] LABS: URINE BILIRUBIN NEGATIVE (Negative); URINE BLOOD TRACE (Negative); URINE CLARITY CLEAR; URINE COLOR YELLOW; URINE GLUCOSE-RANDOM* NEGATIVE (Negative); URINE KETONES NEGATIVE (Negative); URINE NITRITE-REFLEX NEGATIVE (Negative); URINE PROTEIN (DIPSTICK) NEGATIVE (Negative); URINE UROBILINOGEN 0.2 E.U./dl (0.2-1.0)
[2017-12-30 18:17] LABS: URINE LEUKOCYTES-REFLEX 2+ (Negative)
[2017-12-30 18:37] LABS: BACTERIA-REFLEX 1-9 Few /HPF (None Seen); CASTS None Seen /LPF (None Seen); CRYSTALS None Seen /LPF (None Seen); SQUAMOUS None Seen /LPF (0-3); URINE RBC 0-2 Rare /HPF (0-2); URINE WBC-REFLEX 6-15 Few /HPF (0-5)
[2017-12-31 04:10] VITALS: BP 106/65
[2017-12-31 08:38] VITALS: BP 149/63
[2017-12-31 12:05] VITALS: BP 136/72
[2017-12-31 19:45] VITALS: BP 135/82
[2018-01-01 03:50] VITALS: BP 125/69
[2018-01-01 08:00] VITALS: BP 106/63
[2018-01-01] MEDS ORDERED: MAXIPIME 1 GM/D51 G1 IV (09:27)
[2018-01-01] MEDS ORDERED: NOVOLOG100 UNIT/1 SUBQ (09:35)
[2018-01-01 11:50] VITALS: BP 95/51
== END 2018-01-01 14:25 | DRG 698 ==
LOC: ER 02:30 → EROBS 04:02 → 3W 04:25
PROVIDERS: Emergency Medicine; Hospitalist; Nurse Practitioner Family; Specialist
DX: T83.511A Infection and inflammatory reaction due to indwelling urethral catheter, initial encounter (principal); L89.323 Pressure ulcer of left buttock, stage 3; L89.153 Pressure ulcer of sacral region, stage 3; A41.9 Sepsis, unspecified organism; R65.20 Severe sepsis without septic shock; G82.50 Quadriplegia, unspecified; E43 Unspecified severe protein-calorie malnutrition; J96.10 Chronic respiratory failure, unspecified whether with hypoxia or hypercapnia; J95.03 Malfunction of tracheostomy stoma; N18.9 Chronic kidney disease, unspecified; K21.9 Gastro-esophageal reflux disease without esophagitis; N30.90 Cystitis, unspecified without hematuria; Y83.8 Other surgical procedures as the cause of abnormal reaction of the patient, or of later complication, without mention of misadventure at the time of the procedure; J40 Bronchitis, not specified as acute or chronic; R13.10 Dysphagia, unspecified; E11.22 Type 2 diabetes mellitus with diabetic chronic kidney disease; Z93.1 Gastrostomy status; Z89.612 Acquired absence of left leg above knee; Z79.899 Other long term (current) drug therapy; Z79.82 Long term (current) use of aspirin; Z87.440 Personal history of urinary (tract) infections; Y92.89 Other specified places as the place of occurrence of the external cause; Z68.25 Body mass index [BMI] 25.0-25.9, adult
CPT/HCPCS: 10879

== ENCOUNTER 2018-02-14 21:39 | Observation (INO) | payer OTHER ==
[~2018-02-14] VITALS: Ht 172.7 cm; Wt 68.0 kg
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
[~2018-02-14 21:39] MED LIST changes: +MAXIPIME 1 GM/D51 G1 IV; +NOVOLOG100 UNIT/1 SUBQ
[2018-02-14] MEDS ORDERED: CALAZIME PASTE (21:52)
[2018-02-14] MEDS ORDERED: SILTUSSIN DM D118 ML PER TUBE (21:54)
[2018-02-15] VITALS (7 sets, daily range): BP systolic 100–157; BP diastolic 55–93
[2018-02-16 08:25] VITALS: BP 97/62
[2018-02-16 10:36] LABS: URINE BILIRUBIN NEGATIVE (Negative); URINE BLOOD 1+ (Negative); URINE CLARITY CLEAR; URINE COLOR YELLOW; URINE GLUCOSE-RANDOM* NEGATIVE (Negative); URINE KETONES NEGATIVE (Negative); URINE LEUKOCYTES TRACE (Negative); URINE NITRITE POSITIVE (Negative); URINE PROTEIN (DIPSTICK) NEGATIVE (Negative); URINE SPECIFIC GRAVITY 1.015 (1.005-1.035); URINE UROBILINOGEN 0.2 E.U./dl (0.2-1.0)
[2018-02-16 10:55] LABS: BACTERIA 1-9 Few /HPF (None Seen); CASTS None Seen /LPF (None Seen); CRYSTALS None Seen /LPF (None Seen); SQUAMOUS None Seen /LPF (0-3); URINE RBC None Seen /HPF (0-2); URINE WBC 0-5 Rare /HPF (0-5)
[2018-02-16 15:27] VITALS: BP 90/63
== END 2018-02-16 17:20 ==
LOC: ER 21:39 → 3W 23:47 → EROBS 23:47 → 3W 02-15 00:24
PROVIDERS: Internal Medicine
DX: J96.10 Chronic respiratory failure, unspecified whether with hypoxia or hypercapnia (principal); G82.50 Quadriplegia, unspecified; M24.50 Contracture, unspecified joint; R13.10 Dysphagia, unspecified; E11.22 Type 2 diabetes mellitus with diabetic chronic kidney disease; N18.9 Chronic kidney disease, unspecified; K21.9 Gastro-esophageal reflux disease without esophagitis; D69.6 Thrombocytopenia, unspecified; L89.313 Pressure ulcer of right buttock, stage 3; L89.153 Pressure ulcer of sacral region, stage 3; Z79.4 Long term (current) use of insulin; Z89.612 Acquired absence of left leg above knee; Z98.890 Other specified postprocedural states; Z87.828 Personal history of other (healed) physical injury and trauma; Z87.440 Personal history of urinary (tract) infections; Z93.1 Gastrostomy status; Z93.0 Tracheostomy status; Z59.0 Homelessness

== ENCOUNTER 2018-06-12 02:54 | Inpatient (IN) | payer OTHER ==
[2018-06-12] VITALS (36 sets, daily range): BP systolic 76–166; BP diastolic 23–99
[~2018-06-12] VITALS: Ht 182.9 cm; Wt 67.5 kg
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
--- NOTE | ~2018-06-12 | EKG ---
[address] [address] ELECTROCARDIOGRAM REPORT Name: COTY DUENAS Room #: 241-P ADM IN M.R.#: [id number] Admission: 06/12/18 Attend Phys: Leonidas Collado MD Discharge: Date of : 85 Report #: [id number] THIS REPORT FOR: //name// [facility] [place] [place] Test Date: 2018-06-12 Test Time: 17:59:07 Pat Name: COTY DUENAS Department: Room: 241 P Gender: M Store Person: : 1985 Requested By: Alan Mcmahon Order Number: [id number] MD: Sen Baig Measurements Intervals [place] Rate: 149 P: 77 FL: 156 QRS: 17 QRSD: 72 T: -77 QT: 285 QTc: 449 Interpretive Statements Sinus tachycardia Borderline repolarization abnormality Compared to ECG 08/27/2017 00:38:51 Left ventricular hypertrophy no longer present Electronically Signed On 06-13-2018 10:21:50 COMBATANT DIVER QUALIFIED by Sen Baig [email or web address] <ELECTRONICALLY SIGNED> By: Sen aBig MD 06/13/18 1021 1759 1759 MD FRITZ Marquez
[~2018-06-12 02:54] MED LIST changes: +CALAZIME PASTE; +SILTUSSIN DM D118 ML PER TUBE
[2018-06-12 03:46] LABS: BE(vivo) -0.4 mmol/L (-2 to +3); HCO3 23.9 mmol/L (22.0-26.0); PCO2 38.2 mmHg (35.0-45.0); PO2 78.9 mmHg (80.0-100.0); pH 7.414 (7.360-7.450); sO2 95.9 % (92.0-98.0)
[2018-06-12 04:16] LABS: HEMATOCRIT 41.1 % (42.0-52.0); HEMOGLOBIN 13.2 gm/dL (14.0-18.0); MCH 25.6 pg (26.0-34.0); MCHC 32.1 g/dL (28.0-37.0); PLATELET COUNT 270 thou/uL (150-400); RBC 5.14 mil/uL (4.50-6.00); RDW 16.8 % (10.5-14.5); WBC 22.5 thou/uL (4.0-11.0)
[2018-06-12 04:18] LABS: CALCIUM 9.5 mg/dL (8.5-10.1); CREATININE 0.9 mg/dL (0.7-1.3); POTASSIUM 4.8 mmol/L (3.5-5.1)
[2018-06-12 05:50] LABS: ABSOLUTE NEUTROPHILS 18.2 thou/uL (1.4-8.2); ANISOCYTOSIS 1+; LARGE PLATELETS FEW
[2018-06-12 08:10] LABS: URINE BILIRUBIN NEGATIVE (Negative); URINE BLOOD 3+ (Negative); URINE CLARITY CLOUDY; URINE COLOR YELLOW; URINE GLUCOSE-RANDOM* TRACE (Negative); URINE KETONES NEGATIVE (Negative); URINE NITRITE-REFLEX NEGATIVE (Negative); URINE PROTEIN (DIPSTICK) 2+ (Negative); URINE SPECIFIC GRAVITY <= 1.005 (1.005-1.035); URINE UROBILINOGEN 0.2 E.U./dl (0.2-1.0)
[2018-06-12 08:16] LABS: URINE LEUKOCYTES-REFLEX 3+ (Negative)
[2018-06-12 08:19] LABS: BACTERIA-REFLEX >30 Many /HPF (None Seen); CASTS None Seen /LPF (None Seen); SQUAMOUS None Seen /LPF (0-3); TRIPLE PHOSPHATE CRYSTALS 4-10 Moderate /LPF (None Seen); URINE WBC-REFLEX >25 Many /HPF (0-5)
[2018-06-12 08:20] LABS: URINE RBC 0-2 Rare /HPF (0-2)
[2018-06-12 16:00] LABS: APTT 32.4 Seconds (24.5-32.8); FIBRINOGEN 463.8 mg/dL (210-360); INR 1.3; PROTIME 13.8 Seconds (9.3-11.4)
[2018-06-12 17:53] LABS: BE(vivo) -5.9 mmol/L (-2 to +3); HCO3 18.2 mmol/L (22.0-26.0); PCO2 31.1 mmHg (35.0-45.0); PO2 53.6 mmHg (80.0-100.0); pH 7.384 (7.360-7.450); sO2 87.9 % (92.0-98.0)
[2018-06-12 20:01] LABS: BE(vivo) -7.8 mmol/L (-2 to +3); HCO3 15.7 mmol/L (22.0-26.0); PCO2 26.1 mmHg (35.0-45.0); PO2 80.1 mmHg (80.0-100.0); pH 7.396 (7.360-7.450)
[2018-06-12 21:03] LABS: HEMATOCRIT 32.7 % (42.0-52.0); MCH 26.4 pg (26.0-34.0); MCHC 31.7 g/dL (28.0-37.0); MCV 83.2 fL (80.0-100.0); RBC 3.94 mil/uL (4.50-6.00); RDW 17.5 % (10.5-14.5); WBC 35.5 thou/uL (4.0-11.0)
[2018-06-12 21:07] LABS: POTASSIUM 4.3 mmol/L (3.5-5.1)
[2018-06-12 21:13] LABS: ALBUMIN 1.8 g/dL (3.4-5.0); TOTAL BILIRUBIN 0.8 mg/dL (<0.1-1.0); TOTAL PROTEIN 6.6 g/dL (6.4-8.2)
[2018-06-12 21:20] LABS: CALCIUM 7.2 mg/dL (8.5-10.1)
[2018-06-12 21:23] LABS: HEMOGLOBIN 10.4 gm/dL (14.0-18.0); PLATELET COUNT 132 thou/uL (150-400)
[2018-06-12 22:35] LABS: ABSOLUTE NEUTROPHILS 28.8 thou/uL (1.4-8.2); ANISOCYTOSIS 1+; LARGE PLATELETS OCCASIONAL; METAMYELOCYTES 5 %; NUCLEATED RBCS 1 /100WBC; TOXIC GRANULATION 1+
[2018-06-13] VITALS (94 sets, daily range): BP systolic 87–148; BP diastolic 28–68
[2018-06-13 01:23] LABS: CALCIUM 7.2 mg/dL (8.5-10.1); CREATININE 1.4 mg/dL (0.7-1.3); POTASSIUM 4.3 mmol/L (3.5-5.1)
[2018-06-13 06:12] LABS: HEMOGLOBIN 10.1 gm/dL (14.0-18.0); RDW 17.5 % (10.5-14.5)
[2018-06-13 06:14] LABS: HEMATOCRIT 31.5 % (42.0-52.0); MCV 81.1 fL (80.0-100.0); PLATELET COUNT 125 thou/uL (150-400); RBC 3.89 mil/uL (4.50-6.00)
[2018-06-13 06:20] LABS: CALCIUM 7.6 mg/dL (8.5-10.1); CREATININE 0.9 mg/dL (0.7-1.3); MAGNESIUM 1.5 mg/dL (1.8-2.4); POTASSIUM 3.7 mmol/L (3.5-5.1); WBC 43.2 thou/uL (4.0-11.0)
[2018-06-13 07:59] LABS: ABSOLUTE NEUTROPHILS 36.3 thou/uL (1.4-8.2); METAMYELOCYTES 2 %; PLATELET ESTIMATE NORMAL
[2018-06-14] VITALS (48 sets, daily range): BP systolic 100–134; BP diastolic 45–82
[2018-06-14 05:42] LABS: HEMATOCRIT 28.6 % (42.0-52.0); HEMOGLOBIN 9.1 gm/dL (14.0-18.0); MCH 25.8 pg (26.0-34.0); MCHC 31.9 g/dL (28.0-37.0); MCV 80.9 fL (80.0-100.0); PLATELET COUNT 114 thou/uL (150-400); RBC 3.54 mil/uL (4.50-6.00); RDW 17.3 % (10.5-14.5)
[2018-06-14 05:43] LABS: WBC 27.7 thou/uL (4.0-11.0)
[2018-06-14 05:54] LABS: CALCIUM 7.4 mg/dL (8.5-10.1); CREATININE 0.6 mg/dL (0.7-1.3); MAGNESIUM 1.6 mg/dL (1.8-2.4); POTASSIUM 3.2 mmol/L (3.5-5.1)
[2018-06-14 06:33] LABS: ABSOLUTE NEUTROPHILS 23.8 thou/uL (1.4-8.2); ANISOCYTOSIS 1+; METAMYELOCYTES 1 %
[2018-06-15] VITALS (24 sets, daily range): BP systolic 105–157; BP diastolic 48–86
[2018-06-15 05:36] LABS: HEMATOCRIT 29.2 % (42.0-52.0); HEMOGLOBIN 9.5 gm/dL (14.0-18.0); MCHC 32.5 g/dL (28.0-37.0); MCV 79.9 fL (80.0-100.0); PLATELET COUNT 113 thou/uL (150-400); RBC 3.65 mil/uL (4.50-6.00); RDW 17.1 % (10.5-14.5); WBC 20.2 thou/uL (4.0-11.0)
[2018-06-15 05:43] LABS: CALCIUM 8.3 mg/dL (8.5-10.1); CREATININE 0.6 mg/dL (0.7-1.3); MAGNESIUM 1.5 mg/dL (1.8-2.4); POTASSIUM 3.7 mmol/L (3.5-5.1)
[2018-06-15 09:12] LABS: ABSOLUTE NEUTROPHILS 16.8 thou/uL (1.4-8.2)
[2018-06-15 09:13] LABS: ANISOCYTOSIS 1+
[2018-06-16] VITALS: BP 112/65
[2018-06-16 04:00] VITALS: BP 130/73
[2018-06-16 06:13] LABS: HEMATOCRIT 31.1 % (42.0-52.0); HEMOGLOBIN 10.1 gm/dL (14.0-18.0); MCH 26.3 pg (26.0-34.0); MCHC 32.6 g/dL (28.0-37.0); MCV 80.8 fL (80.0-100.0); RBC 3.85 mil/uL (4.50-6.00); RDW 17.1 % (10.5-14.5); WBC 9.3 thou/uL (4.0-11.0)
[2018-06-16 06:16] LABS: CALCIUM 8.6 mg/dL (8.5-10.1); CREATININE 0.5 mg/dL (0.7-1.3); MAGNESIUM 1.7 mg/dL (1.8-2.4); POTASSIUM 3.9 mmol/L (3.5-5.1)
[2018-06-16 08:00] VITALS: BP 135/69
[2018-06-16 12:00] VITALS: BP 137/66
[2018-06-16 15:39] VITALS: BP 123/81
[2018-06-16 20:35] VITALS: BP 149/76
[2018-06-17] VITALS: BP 136/72
[2018-06-17 05:00] VITALS: BP 143/80
[2018-06-17 06:04] LABS: HEMATOCRIT 32.9 % (42.0-52.0); HEMOGLOBIN 10.7 gm/dL (14.0-18.0); MCHC 32.7 g/dL (28.0-37.0); MCV 79.7 fL (80.0-100.0); RBC 4.13 mil/uL (4.50-6.00); WBC 7.9 thou/uL (4.0-11.0)
[2018-06-17 06:12] LABS: CALCIUM 8.4 mg/dL (8.5-10.1); CREATININE 0.6 mg/dL (0.7-1.3); POTASSIUM 3.4 mmol/L (3.5-5.1)
[2018-06-17 07:40] VITALS: BP 111/57
[2018-06-17 11:12] VITALS: BP 116/59
[2018-06-17 16:20] VITALS: BP 113/56
[2018-06-17 21:00] VITALS: BP 106/58
[2018-06-18 04:50] VITALS: BP 117/63
[2018-06-18 08:09] VITALS: BP 156/60
[2018-06-18 12:00] VITALS: BP 156/68
[2018-06-18 15:39] VITALS: BP 159/85
[2018-06-18 20:05] VITALS: BP 146/77
[2018-06-19 03:56] VITALS: BP 130/54
[2018-06-19 06:54] LABS: HEMATOCRIT 32.5 % (42.0-52.0); HEMOGLOBIN 10.6 gm/dL (14.0-18.0); MCH 26.2 pg (26.0-34.0); MCHC 32.6 g/dL (28.0-37.0); MCV 80.4 fL (80.0-100.0); RBC 4.04 mil/uL (4.50-6.00); RDW 16.8 % (10.5-14.5); WBC 8.7 thou/uL (4.0-11.0)
[2018-06-19 07:05] LABS: CALCIUM 8.7 mg/dL (8.5-10.1); CREATININE 0.5 mg/dL (0.7-1.3); POTASSIUM 4.4 mmol/L (3.5-5.1)
[2018-06-19 08:03] VITALS: BP 157/68
[2018-06-19 12:31] VITALS: BP 139/68
[2018-06-19 16:51] VITALS: BP 170/68
[2018-06-19 19:16] VITALS: BP 100/60
[2018-06-20 05:00] VITALS: BP 123/68
[2018-06-20 07:14] LABS: HEMATOCRIT 32.9 % (42.0-52.0); HEMOGLOBIN 10.5 gm/dL (14.0-18.0); MCHC 32.1 g/dL (28.0-37.0); MCV 81.1 fL (80.0-100.0); RBC 4.05 mil/uL (4.50-6.00); WBC 8.5 thou/uL (4.0-11.0)
[2018-06-20 07:21] LABS: CALCIUM 8.9 mg/dL (8.5-10.1); CREATININE 0.5 mg/dL (0.7-1.3); POTASSIUM 4.2 mmol/L (3.5-5.1)
[2018-06-20 07:57] VITALS: BP 118/66
[2018-06-20 17:25] VITALS: BP 92/51
[2018-06-20 20:00] VITALS: BP 107/56
[2018-06-21 04:23] VITALS: BP 104/55
[2018-06-21 06:23] LABS: HEMATOCRIT 32.7 % (42.0-52.0); HEMOGLOBIN 10.3 gm/dL (14.0-18.0); MCH 25.7 pg (26.0-34.0); MCHC 31.5 g/dL (28.0-37.0); MCV 81.4 fL (80.0-100.0); RBC 4.02 mil/uL (4.50-6.00); RDW 16.9 % (10.5-14.5); WBC 9.5 thou/uL (4.0-11.0)
[2018-06-21 06:25] LABS: CALCIUM 9.1 mg/dL (8.5-10.1); CREATININE 0.5 mg/dL (0.7-1.3); POTASSIUM 3.8 mmol/L (3.5-5.1)
[2018-06-21 08:23] VITALS: BP 129/63
[2018-06-21] MEDS ORDERED: LOPRESSOR50 PER TUBE (10:12)
[2018-06-21] MEDS ORDERED: IPRAT-ALBUT 0.5-3 ML INH (10:12)
[2018-06-21] MEDS ORDERED: MYCAMINE100 MG IV (10:16)
[2018-06-21] MEDS ORDERED: MERREM1 GM IVPB (10:16)
[2018-06-21] MEDS ORDERED: VANCO 1 GR1 GM/150 M IV (10:16)
[2018-06-21] MEDS ORDERED: PROBIOTIC1 EAC1 PO (10:24)
[2018-06-21 11:05] VITALS: BP 97/60
[2018-06-21 15:44] VITALS: BP 95/45
[2018-06-21 19:57] VITALS: BP 105/52
[2018-06-22 07:45] VITALS: BP 117/49
[2018-06-22 11:37] VITALS: BP 114/68
[2018-06-22 15:45] VITALS: BP 110/54
== END 2018-06-22 20:00 | DRG 698 ==
LOC: ER 02:54 → 3W 05:51 → ICU 05:51 → EROBS 05:51 → 3W 06:25 → ICU 16:22 → 3W 06-16 19:54
PROVIDERS: Emergency Medicine; Hospitalist; Internal Medicine; Internal Medicine Pulmonary Disease; Nurse Practitioner Acute Care; Specialist
PROC: 02HV33Z Insertion of Infusion Device into Superior Vena Cava, Percutaneous Approach (ICD-10-PCS; principal; 2018-06-12)
PROC: B548ZZA Ultrasonography of Superior Vena Cava, Guidance (ICD-10-PCS; principal; 2018-06-12)
DX: T83.511A Infection and inflammatory reaction due to indwelling urethral catheter, initial encounter (principal); L89.153 Pressure ulcer of sacral region, stage 3; G82.50 Quadriplegia, unspecified; E43 Unspecified severe protein-calorie malnutrition; J96.20 Acute and chronic respiratory failure, unspecified whether with hypoxia or hypercapnia; R65.21 Severe sepsis with septic shock; J18.9 Pneumonia, unspecified organism; D65 Disseminated intravascular coagulation [defibrination syndrome]; A41.51 Sepsis due to Escherichia coli [E. coli]; N17.9 Acute kidney failure, unspecified; J95.01 Hemorrhage from tracheostomy stoma; G93.49 Other encephalopathy; T83.018A Breakdown (mechanical) of other urinary catheter, initial encounter; E11.22 Type 2 diabetes mellitus with diabetic chronic kidney disease; N39.0 Urinary tract infection, site not specified; K21.9 Gastro-esophageal reflux disease without esophagitis; N31.9 Neuromuscular dysfunction of bladder, unspecified; D69.6 Thrombocytopenia, unspecified; Y84.6 Urinary catheterization as the cause of abnormal reaction of the patient, or of later complication, without mention of misadventure at the time of the procedure; Y83.8 Other surgical procedures as the cause of abnormal reaction of the patient, or of later complication, without mention of misadventure at the time of the procedure; L89.212 Pressure ulcer of right hip, stage 2; Y92.89 Other specified places as the place of occurrence of the external cause; Z87.828 Personal history of other (healed) physical injury and trauma; Z68.20 Body mass index [BMI] 20.0-20.9, adult; Z89.612 Acquired absence of left leg above knee; Z93.0 Tracheostomy status; Z93.1 Gastrostomy status; Z79.4 Long term (current) use of insulin; Z79.899 Other long term (current) drug therapy; Z59.0 Homelessness; Z28.21 Immunization not carried out because of patient refusal
CPT/HCPCS: 10203; 10879; 27000

== ENCOUNTER 2018-12-19 15:10 | Emergency (ER) | payer OTHER ==
[~2018-12-19] VITALS: Ht 185.4 cm; Wt 79.4 kg
[~2018-12-19 15:10] MED LIST changes: +IPRAT-ALBUT 0.5-3 ML INH; +LOPRESSOR50 PER TUBE; +MERREM1 GM IVPB; +MYCAMINE100 MG IV; +PROBIOTIC1 EAC1 PO; +VANCO 1 GR1 GM/150 M IV
[2018-12-19 18:47] VITALS: BP 106/62
== END 2018-12-19 15:34 ==
LOC: ER 15:10
DX: J95.03 Malfunction of tracheostomy stoma (principal); J21.9 Acute bronchiolitis, unspecified; D69.6 Thrombocytopenia, unspecified; E11.22 Type 2 diabetes mellitus with diabetic chronic kidney disease; N18.9 Chronic kidney disease, unspecified; G82.50 Quadriplegia, unspecified; Z93.1 Gastrostomy status

== ENCOUNTER 2019-04-25 09:48 | Emergency (ER) | payer OTHER ==
[~2019-04-25] VITALS: Ht 188 cm; Wt 68.0 kg
[2019-04-25 09:50] VITALS: BP 124/45
== END 2019-04-25 10:01 | disposition short-term general hospital (02) ==
LOC: ER 09:48
DX: Z46.6 Encounter for fitting and adjustment of urinary device (principal); K21.9 Gastro-esophageal reflux disease without esophagitis; E11.22 Type 2 diabetes mellitus with diabetic chronic kidney disease; N18.9 Chronic kidney disease, unspecified; Z79.4 Long term (current) use of insulin; Z87.820 Personal history of traumatic brain injury

== ENCOUNTER 2019-07-04 10:53 | Inpatient (IN) | payer OTHER ==
[~2019-07-04] VITALS: Ht 177.8 cm; Wt 77.2 kg
[2019-07-04 10:54] VITALS: BP 116/55
[2019-07-04] MEDS ORDERED: TRANSDERM-SCOP1 EACH TRANSDERM (11:49)
[2019-07-04] MEDS ORDERED: PRO-STAT LIQUID30 ML PO (11:50)
[2019-07-04] MEDS ORDERED: OLOPATADINE HC2.5 ML OPHTHALMIC (11:50)
[2019-07-04 11:53] LABS: URINE CLARITY CLOUDY; URINE COLOR YELLOW; URINE LEUKOCYTES-REFLEX 3+ (Negative); URINE NITRITE-REFLEX NEGATIVE (Negative)
[2019-07-04 11:54] LABS: URINE BILIRUBIN NEGATIVE (Negative); URINE BLOOD 2+ (Negative); URINE GLUCOSE-RANDOM* NEGATIVE (Negative); URINE KETONES NEGATIVE (Negative); URINE PROTEIN (DIPSTICK) 1+ (Negative); URINE UROBILINOGEN 0.2 E.U./dl (0.2-1.0)
[2019-07-04 11:55] LABS: AMP/METHAMP Negative (Negative); BARBITURATES Negative (Negative); BENZODIAZEPINES Negative (Negative); COCAINE Negative (Negative); METHADONE Negative (Negative); OPIATES POSITIVE (Negative); PCP Negative (Negative)
[2019-07-04 12:16] LABS: AMORPHOUS URATES Many /LPF (None Seen); CALCIUM OXALATE 4-10 Moderate /LPF (None Seen); CASTS None Seen /LPF (None Seen); SQUAMOUS None Seen /LPF (0-3); URINE RBC None Seen /HPF (0-2)
[2019-07-04 12:53] LABS: ABSOLUTE NEUTROPHILS 5.4 thou/uL (1.4-8.2); BASOPHILS 1.3 % (0.0-2.0); EOSINOPHILS 1.8 % (0.0-3.0); HEMATOCRIT 36.5 % (42.0-52.0); HEMOGLOBIN 11.8 gm/dL (14.0-18.0); LYMPHOCYTES 29.1 % (24.0-44.0); MCH 27.5 pg (26.0-34.0); MCHC 32.4 g/dL (28.0-37.0); MCV 84.9 fL (80.0-100.0); MONOCYTES 11.9 % (1.0-8.0); PLATELET COUNT 191 thou/uL (150-400); POLYS 55.9 % (36.0-66.0); RDW 17.1 % (10.5-14.5); WBC 9.6 thou/uL (4.0-11.0)
[2019-07-04 13:07] LABS: ANION GAP 10 mmol/L (7-16); BUN 12 mg/dL (7-18); CALCIUM 9.6 mg/dL (8.5-10.1); CHLORIDE 101 mmol/L (98-107); CO2 25 mmol/L (21-32); CREATININE 0.6 mg/dL (0.7-1.3); GLUCOSE 91 mg/dL (74-106); POTASSIUM 4.2 mmol/L (3.5-5.1); SODIUM 136 mmol/L (136-145)
[2019-07-04 13:10] LABS: APTT 32.2 Seconds (24.5-32.8); INR 1.1; PROTIME 11.5 Seconds (9.3-11.4)
[2019-07-04 13:17] LABS: ALBUMIN 2.2 g/dL (3.4-5.0); MAGNESIUM 1.5 mg/dL (1.8-2.4); SGOT 22 U/L (15-37); SGPT 28 U/L (30-65); TOTAL BILIRUBIN 0.4 mg/dL (<0.1-1.0); TOTAL PROTEIN 9.4 g/dL (6.4-8.2); TROPONIN-I <0.06 ng/mL (<0.06)
[2019-07-04 13:55] VITALS: BP 150/99
[2019-07-04 14:11] VITALS: BP 97/59
--- NOTE | 2019-07-04 15:06 | NUR ---
RENAN [id number] CELL [id number] WORK [id number] HOME
--- NOTE | 2019-07-04 15:08 | NUR ---
DELLA [id number] CELL
[2019-07-04 15:10] LABS: BE(vivo) 0.8 mmol/L (-2 to +3); HCO3 27.1 mmol/L (22.0-26.0); PCO2 VENOUS 50.8 mmHg (41.0-51.0)
[2019-07-04] MEDS ORDERED: CHILDREN'S15 MG/1 M2 PER TUBE (15:24)
[2019-07-04] MEDS ORDERED: THERA1 EAC1 PO (15:26)
[2019-07-04] MEDS ORDERED: TYLENOL325 MG PO (15:28)
[2019-07-04] MEDS ORDERED: EUCERIN CREME57 GM TOP (15:30)
[2019-07-04] MEDS ORDERED: NORCO 10-325 T1 EACH PO (15:30)
[2019-07-04] MEDS ORDERED: ACETYLCYST200 MG/1 M INH (15:32)
[2019-07-04] MEDS ORDERED: PERIDEX15 ML MUCOUS MEM (15:32)
--- NOTE | 2019-07-04 15:38 | NUR ---
DISCUSSED WITH MOTHER BENEFITS AND RISK OF MIDLINE,GAVE VERBAL CONSENT. REVIEWED HISTORY, LABS, AND MEDS. ATTEMPTED KRYSTAL CEPHLIC, PT IS CONTRACTED BUT UNABLE TO PASS GUIDEWIRE. KRYSTAL BASILIC WAS WIDELY PATENT WITH USG. 4FR POWER ML TRIMMED TO 15CM INSERTED TO 0CM WITH BRISK BR. ML RELEASED FOR IMMEDIATE USE PER PROTOCOL TO PEDRO LUIS AREVALO. PT TOLERATED WELL
[2019-07-04 15:55] VITALS: BP 150/99
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
[2019-07-04 19:51] VITALS: BP 127/70
[2019-07-05 05:03] VITALS: BP 121/47
--- NOTE | 2019-07-05 06:00 | NUR ---
Pt. is non-verbal, but will follow with his eyes. He has been turned and repositioned throughout the night. Trachshield at 15 liters and RT has been suctioning pt. prn. Tube feeding started and head of the bed is elevated. Bed alarm is on.
[2019-07-05 07:30] VITALS: BP 144/92
--- NOTE | 2019-07-05 07:57 | EKG ---
[address] [place] [address] ELECTROCARDIOGRAM REPORT Name: COTY DUENAS Room #: 363-P ADM IN M.R.#: [id number] Admission: 07/04/19 Attend Phys: Sheng Fry MD Discharge: Date of : 85 Report #: [id number] THIS REPORT FOR: //name// [facility] ED Test Date: 2019-07-04 Test Time: 12:00:39 Pat Name: COTY DUENAS Department: Room: 363 Gender: M Automation Technician: TAYLOR : 1985 Requested By: Alex Matson Order Number: [id number] MD: Sebastian Billings Measurements Intervals [place] Rate: 102 P: 63 OR: 160 QRS: 27 QRSD: 81 T: 2 QT: 325 QTc: 424 Interpretive Statements Sinus tachycardia Poor R wave progression Compared to ECG 06/12/2018 17:59:07 Repolarization abnormalities no longer present Heart rate has slowed Electronically Signed On 07-05-2019 7:57:13 CONSULTANT RN by Sebastian Billings [email or web address] <ELECTRONICALLY SIGNED> By: Sebastian Billings MD, [facility] 07/05/19 0757 1200 1200 Sebastian Billings MD, FACC /EPI
--- NOTE | 2019-07-05 09:32 | NUR ---
WOUND CARE NOTE large sacral area pink tissue healed from old wound? according to staff attorney mother states was using a silver based cream? mother not present at time of visit, no open areas, blanchable, photo in chart from yesterday, pt alert, cooperative recommendations zguard daily and prn sacral area, turn q 2hours, low air loss pump ordered staff attorney aware of recommendations
[2019-07-05 12:29] VITALS: BP 166/113
--- NOTE | 2019-07-05 15:08 | NUR ---
Patient had frequent sputum throughout the morning, required trach suction. Bathed and changed bedding. The patient sweats constantly and has problems with EKG pads sticking. Keeping lights on in the room is irritating for the patient.
[2019-07-05 15:15] VITALS: BP 159/64
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
--- NOTE | 2019-07-05 18:12 | NUR ---
EXCHANGED SUPRAPUBIC CATHETER PER PHYSICIAN REQUEST. PT HAD 18FR CATHETER WITH 10 ML BALLOON THAT WAS REMOVED AND REPLACED WITH ANOTHER 18FR CATHETER USING STERILE TECHNIQUE BY DION PASCAL.
[2019-07-05 20:06] VITALS: BP 123/44
--- NOTE | 2019-07-06 03:24 | NUR ---
ASSUMED CARE FROM DAY SHIFT PT RESTING IN BED SUCTIONED THICK SECRETIONS TOLERATED WELL HR ST ON ROUTER TENDER, PT HAD LARGE SOFT STOOL. BARRRIER CREAME APPLIED. TOLERATIONG TUBE FEEDING. RESTED WELL THROGUHOUT HOURLY ROUNDS WILL REPORT CHANGES OR ABNORMAL FINDINSG.
[2019-07-06 05:05] VITALS: BP 199/07
[2019-07-06 08:19] VITALS: BP 152/93
[2019-07-06 12:02] VITALS: BP 135/77
[2019-07-06 15:49] LABS: HEMATOCRIT 33.5 % (42.0-52.0); HEMOGLOBIN 10.8 gm/dL (14.0-18.0); MCH 27.8 pg (26.0-34.0); MCHC 32.2 g/dL (28.0-37.0); MCV 86.4 fL (80.0-100.0); RBC 3.88 mil/uL (4.50-6.00); RDW 17.8 % (10.5-14.5); WBC 9.4 thou/uL (4.0-11.0)
[2019-07-06 15:53] VITALS: BP 159/97
[2019-07-06 16:01] LABS: CALCIUM 8.5 mg/dL (8.5-10.1); CREATININE 0.7 mg/dL (0.7-1.3); POTASSIUM 4.2 mmol/L (3.5-5.1)
--- NOTE | 2019-07-06 19:32 | NUR ---
ASSUMED PATIENT CARE AT 0700. OPEN EYE. NONE VERBLE. REPLACED LANDIS CATH. URINE PINK. TOLERATED TF. PORGRESSING TOWARDS POC GOALS.
[2019-07-06 20:49] VITALS: BP 150/88
--- NOTE | 2019-07-07 02:16 | NUR ---
ASSUMED CARE FROM DAY SHIFT PT RESTING IN BED TRACHEOSTOMY SUCTIONED FREQ WITH THICK WHITE SECRECTIONS. POWER EQUIPMENT MECHANICS INSTRUCTOR SHOWS NSR 90'S , SAT 99-100 % RESP 22-24. TURNED EVERY 2 HOURS , YELLOW URINE NOTED IN DRAINAGE BAG FROM SUPRA-PUBIC CATHETER. WILL CONITUNE WITH CURRENT PLAN OF CARE AND WILL REPORT CHANGES OR ABNORMAL FINDINGS.
[2019-07-07 05:29] VITALS: BP 153/76
[2019-07-07 07:51] VITALS: BP 139/84
[2019-07-07 11:42] VITALS: BP 153/69
[2019-07-07] MEDS ORDERED: AUGMENTIN600 MG/5 M PO (11:56)
--- NOTE | 2019-07-07 15:34 | NUR ---
PROGRESSING TOWARDDS POC GOALS. DC TO CENTER NOW.
== END 2019-07-07 15:34 | DRG 871 ==
LOC: ER 10:53 → EROBS 14:18 → 3W 15:26
PROVIDERS: Emergency Medicine; ADMIT Hospitalist
PROC: 5A1935Z Respiratory Ventilation, Less than 24 Consecutive Hours (ICD-10-PCS; principal; 2019-07-07)
DX: A41.9 Sepsis, unspecified organism (principal); J96.01 Acute respiratory failure with hypoxia; G93.41 Metabolic encephalopathy; E43 Unspecified severe protein-calorie malnutrition; J96.21 Acute and chronic respiratory failure with hypoxia; G82.50 Quadriplegia, unspecified; N39.0 Urinary tract infection, site not specified; N18.9 Chronic kidney disease, unspecified; E11.22 Type 2 diabetes mellitus with diabetic chronic kidney disease; E86.0 Dehydration; K21.9 Gastro-esophageal reflux disease without esophagitis; R13.10 Dysphagia, unspecified; E83.42 Hypomagnesemia; B96.4 Proteus (mirabilis) (morganii) as the cause of diseases classified elsewhere; Z93.0 Tracheostomy status; Z93.1 Gastrostomy status; Z89.612 Acquired absence of left leg above knee; Z68.24 Body mass index [BMI] 24.0-24.9, adult; J20.9 Acute bronchitis, unspecified
CPT/HCPCS: 10879; 27000

== ENCOUNTER 2019-08-05 15:24 | Inpatient (IN) | payer OTHER ==
[~2019-08-05] VITALS: Ht 175.3 cm; Wt 72.6 kg
[~2019-08-05 15:24] MED LIST changes: +ACETYLCYST200 MG/1 M INH; +AUGMENTIN600 MG/5 M PO; +CHILDREN'S15 MG/1 M2 PER TUBE; +EUCERIN CREME57 GM TOP; +NORCO 10-325 T1 EACH PO; +OLOPATADINE HC2.5 ML OPHTHALMIC; +PERIDEX15 ML MUCOUS MEM; +PRO-STAT LIQUID30 ML PO; +THERA1 EAC1 PO; +TRANSDERM-SCOP1 EACH TRANSDERM; +TYLENOL325 MG PO
[2019-08-05 15:25] VITALS: BP 113/68
--- NOTE | 2019-08-05 17:22 | NUR ---
IV TEAM- MULTIPLE ATTEMPTS AT IV AND LABS WERE UNSUCCESSFUL. ER TEAM UPDATED
[2019-08-05 19:53] LABS: ABSOLUTE NEUTROPHILS 10.3 thou/uL (1.4-8.2); BASOPHILS 0.1 % (0.0-2.0); EOSINOPHILS 0.6 % (0.0-3.0); HEMATOCRIT 43.4 % (42.0-52.0); HEMOGLOBIN 14.2 gm/dL (14.0-18.0); LYMPHOCYTES 6.9 % (24.0-44.0); MCH 29.2 pg (26.0-34.0); MCHC 32.6 g/dL (28.0-37.0); MCV 89.5 fL (80.0-100.0); MONOCYTES 3.2 % (1.0-8.0); PLATELET COUNT 232 thou/uL (150-400); POLYS 89.2 % (36.0-66.0); RBC 4.85 mil/uL (4.50-6.00); RDW 18.9 % (10.5-14.5); URINE BILIRUBIN NEGATIVE (Negative); URINE BLOOD 3+ (Negative); URINE CLARITY CLOUDY; URINE COLOR YELLOW; URINE GLUCOSE-RANDOM* NEGATIVE (Negative); URINE KETONES NEGATIVE (Negative); URINE NITRITE-REFLEX NEGATIVE (Negative); URINE PROTEIN (DIPSTICK) 2+ (Negative); URINE UROBILINOGEN 0.2 E.U./dl (0.2-1.0); WBC 11.5 thou/uL (4.0-11.0)
[2019-08-05 20:00] LABS: URINE LEUKOCYTES-REFLEX 3+ (Negative)
[2019-08-05 20:04] LABS: CALCIUM 9.5 mg/dL (8.5-10.1); CREATININE 0.7 mg/dL (0.7-1.3); POTASSIUM 3.8 mmol/L (3.5-5.1)
[2019-08-05 20:09] LABS: AMORPHOUS URATES Moderate /LPF (None Seen); BACTERIA-REFLEX >30 Many /HPF (None Seen); CALCIUM OXALATE >10 Many /LPF (None Seen); CASTS None Seen /LPF (None Seen); SQUAMOUS None Seen /LPF (0-3); URINE RBC 3-10 Few /HPF (0-2); URINE WBC-REFLEX >25 Many /HPF (0-5)
[2019-08-05 20:10] LABS: ALBUMIN 3.2 g/dL (3.4-5.0); TOTAL BILIRUBIN 0.6 mg/dL (<0.1-1.0); TOTAL PROTEIN 10.2 g/dL (6.4-8.2)
[2019-08-05 20:12] LABS: ANISOCYTOSIS 1+; PLATELET ESTIMATE NORMAL; POLYCHROMASIA 1+
[2019-08-05 21:50] VITALS: BP 112/67
--- NOTE | 2019-08-05 21:54 | NUR ---
CALLED TO GIVE REPORT.NURSE UNAVAILABLE
[2019-08-05 22:48] VITALS: BP 109/55
[2019-08-05 23:15] VITALS: BP 136/71
[2019-08-06 03:16] VITALS: BP 119/85
--- NOTE | 2019-08-06 05:32 | NUR ---
Arrived from ER around 2239. AUTOMATIC I THREADING MACHINE FEEDER came in to see pt. Pt. is nonverbal with eyes open. Trach mask at 35%. Trach care by RT and oral care by RN. ST per tele. Temp 102.2 axillary , AUTOMATIC I THREADING MACHINE FEEDER notified .Tylenol suppository given with good result. Temp now down to 99.2 axillary. Cont. on isolation precaution. Peg tube connected to dependent drainage and emptied 400 ml of light green,brown with mucusy dge. SP cath had 500 ml out this shift. IV fluids started and IV antibiotics given. Bed alarm on. Butch buttocks wounds , left stump wound and right great toe wound ( see photos in chart ). Pulmonary, ID and wound care consult will be called this am. Pt.'s mom called to get an update. Will continue to monitor.
[2019-08-06 05:50] LABS: HEMATOCRIT 38.1 % (42.0-52.0); HEMOGLOBIN 12.3 gm/dL (14.0-18.0); MCHC 32.3 g/dL (28.0-37.0); MCV 89.8 fL (80.0-100.0); RBC 4.25 mil/uL (4.50-6.00); RDW 18.9 % (10.5-14.5)
[2019-08-06 05:56] LABS: CALCIUM 8.2 mg/dL (8.5-10.1); CREATININE 0.6 mg/dL (0.7-1.3); POTASSIUM 3.3 mmol/L (3.5-5.1)
[2019-08-06 08:10] VITALS: BP 131/84
--- NOTE | 2019-08-06 12:03 | NUR ---
PT AWAKE THIS AM. NON VERBAL.TRACH SHIELD @ 35% INTACT. IV INTACT IN R EJ INFUSING NS @ 75/HR. PEG TUBE CONNECTED TO DRAINAGE BAG. SUPRA PUBIC CATH INTACT DRAINING CLOUDY, SEDIMENT URINE. HR 110-120, AFEBRILE. EXTREMITIES ARE CONTRACTED, WITH L BKA. PT TURNED EVERY 2 HRS, ORAL CARE PROVIDED. WILL CONT POC.
[2019-08-06 17:42] VITALS: BP 154/103
--- NOTE | 2019-08-06 18:45 | NUR ---
BLOOD CULTURE RESULTS CALLED FROM LAB. GRAM POS. COCCI. PT CURRENTLY ON VANCOMYCIN IV. NO NEW ORDERS RECEIVED. WILL CONT POC.
[2019-08-06 19:19] VITALS: BP 128/80
--- NOTE | 2019-08-07 04:39 | NUR ---
Rested intermittently in between cares. Repositioned for comfort. ST per tele. Trach mask at 35% . Suctioned prn sputum sent to lab. Cont. on isolation. Afebrile.Blood cultures done last night (1 peripheral and 1 per central line). Kept NPO , oral care done.Peg tube to dependent dge bag and had 450 ml of greenish liquid. SP cath intact. Dressing intact on bilateral wouds. Will continue to monitor.
[2019-08-07 06:44] LABS: CALCIUM 9.2 mg/dL (8.5-10.1); CREATININE 0.6 mg/dL (0.7-1.3); POTASSIUM 3.5 mmol/L (3.5-5.1)
[2019-08-07 07:23] VITALS: BP 149/69
[2019-08-07 11:01] VITALS: BP 167/98
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
[2019-08-07 12:57] VITALS: BP 127/85
[2019-08-07 15:30] VITALS: BP 121/41
--- NOTE | 2019-08-07 16:14 | EKG ---
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
[2019-08-07 19:31] VITALS: BP 121/91
--- NOTE | 2019-08-08 00:56 | NUR ---
NOTIFIED LISSA DOBBS BS. NO ORDERS AT THIS TIME. WILL CONTINUE TO MONITOR.
--- NOTE | 2019-08-08 04:04 | NUR ---
ASSUMED CARE OF PT AT 1900HRS. PT IS ALERT BUT NON-VERBAL AND DISORIENTED X4. FALL PRECAUTION IN PLACE. PT WAS TURNED Q2H. PT HAS A TRACH AND WAS SUCTIONED NEEDED. PEG TUBE TO GRAVITY DEPENDANT DRAIN. SUPRAPUBIC CATH IN PLACE AND PATIENT. TRACH IS ON 10L WITH 35% FIO2. ABX TREATMENT CONTINUED. PT HAS BE AFEBRILE. PT WAS SLEEPING PART OF THE SHIFT. PT HAS BEEN ST RHYTHM. NO S/S OF ACUTE DISTRESS. WILL CONTINUE TO MONITOR.
[2019-08-08 04:09] VITALS: BP 138/63
[2019-08-08 07:54] LABS: ABSOLUTE NEUTROPHILS 4.7 thou/uL (1.4-8.2); BASOPHILS 0.4 % (0.0-2.0); HEMATOCRIT 36.5 % (42.0-52.0); HEMOGLOBIN 11.8 gm/dL (14.0-18.0); LYMPHOCYTES 26.1 % (24.0-44.0); MCHC 32.4 g/dL (28.0-37.0); MCV 89.5 fL (80.0-100.0); MONOCYTES 7.4 % (1.0-8.0); PLATELET COUNT 194 thou/uL (150-400); POLYS 65.1 % (36.0-66.0); RBC 4.07 mil/uL (4.50-6.00); RDW 18.7 % (10.5-14.5); WBC 7.3 thou/uL (4.0-11.0)
--- NOTE | 2019-08-08 07:58 | NUR ---
TUBE FEEDING RECOMMENDATIONS: 1) While acutely ill, when medically indicated to resume PEG feedings, recommend Vital AF 1.2 at starting rate of 30ml/hr, increasing by 15-20 ml q 12 hrs as tolerated to goal rate 65 ml/hr. This will provide 1872 kcals (25 kcals/kg, 100% low end needs) and 117 g protein (1.6 g/kg, > 100% needs). Recommend 150 ml water flushes q 4 hrs, plus 30 ml before/after any meds via PEG. If hypernatremia persists, further increase flushes. 2) When less acutely ill and N/V/D symptoms improve/resolve, then recommend long-term PEG recommendations of Glucerna 1.2 at goal rate of 70 ml/hr to provide 2016 kcals and 100 g protein/day (20% of calories from protein).
[2019-08-08 08:13] LABS: CALCIUM 9.6 mg/dL (8.5-10.1); CREATININE 0.6 mg/dL (0.7-1.3); POTASSIUM 3.2 mmol/L (3.5-5.1)
[2019-08-08 11:50] VITALS: BP 103/46
[2019-08-08 14:03] LABS: ANISOCYTOSIS 2+; PLATELET ESTIMATE NORMAL
--- NOTE | 2019-08-08 14:29 | NUR ---
DISCHARGE PLANNING. PATIENT IS A RESIDENT AT [facility]. DISCHARGE PLAN IS FOR PATIENT TO RETURN TO [facility] ONCE MEDICALLY READY. CALL PLACED TO [facility] LIAISON TO NOTIFY. CLINICAL INFORMATION FAXED TO [facility]. UNIT SW AWARE. FOLLOWING.
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
--- NOTE | 2019-08-08 17:58 | NUR ---
PATIENT RESTARTED NO PEG TUBE FEEDING THIS PM. HE HAS BEEN TOLERANT SO FAR. NO GAGGING OR SIGNS OF ASPIRATIONS NOTED. HE HAS SLEPT MOST OF THE DAY. DOES NOT SEEM TO BE IN PAIN. POSITION ROTATED Q2. HIS BUTTOCKS LOOKS EXCORIATED. WILL CONT WITH PLAN OF CARE.
[2019-08-08 18:06] VITALS: BP 100/56
[2019-08-08 19:40] VITALS: BP 105/59
[2019-08-09 03:30] VITALS: BP 115/52
[2019-08-09 05:51] LABS: CREATININE 0.5 mg/dL (0.7-1.3)
[2019-08-09 07:27] VITALS: BP 120/52
--- NOTE | 2019-08-09 14:03 | NUR ---
YEIMI reviewed chart and spoke with nursing and attending physician. Pt is on trach shield. Plan is for pt to return to [facility] when medically stable. YEIMI faxed clinical info to [facility] for review. YEIMI spoke with [facility] liaison, who confirms they are able to accept pt back tomorrow if pt is ready for discharge. Pt will need ambulance transportation back. Final discharge orders/summary will need to be faxed when available. Contact [facility] liaison to facilitate. Pt's mother will need to be notified of discharge. YEIMI is available to assist as needed. [facility]-- Liaison (Gisela): [phone]
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
[2019-08-09 19:55] VITALS: BP 111/75
[2019-08-10 04:20] VITALS: BP 121/77
[2019-08-10 06:06] LABS: CREATININE 0.5 mg/dL (0.7-1.3); POTASSIUM 3.2 mmol/L (3.5-5.1)
--- NOTE | 2019-08-10 06:08 | NUR ---
Pt. has been repositioned for comfort. Afebrile. Cont. on isolation precaution. Trach mask at 35% and maintaining O2 sat in the upper 90's. Loose cough. Tolerating tube feeding well with no gastric residual. Zinc oxide to buttocks. SP cath in place. Making progress towards care plan goals.
[2019-08-10 08:07] VITALS: BP 98/68
[2019-08-10 11:56] VITALS: BP 87/38
--- NOTE | 2019-08-10 13:37 | NUR ---
PT PROGRESSING TOWARDS PLAN OF CARE
[2019-08-10 15:15] VITALS: BP 105/51
[2019-08-10 15:54] VITALS: BP 102/69
[2019-08-10 19:47] VITALS: BP 91/52
[2019-08-11 00:06] VITALS: BP 107/36
--- NOTE | 2019-08-11 03:34 | NUR ---
ASSUMED PT CARE AROUND 1900. NONVERBAL. COMPLETE BED BATH GIVEN THIS SHIFT. PT HAS HAD 2 BOWEL MOVEMENTS SO FAR THIS SHIFT. TF VIA PEG. NO TF RESIDUALS NOTED SO FAR THIS SHIFT. ORAL CARE PROVIDED. Q2H TURN. PT HAS BEEN SLEEPING OFF AND ON DURING THE NIGHT. STRONG COUGH WITH MODERATE TO LARGE AMOUNT OF TRACHEAL SECRETIONS. FALL PRECAUTIONS IN PLACE. PROGRESSING TOWARD POC GOALS. WILL CONTINUE TO MONITOR FURTHER.
[2019-08-11 06:05] VITALS: BP 128/76
[2019-08-11 08:05] VITALS: BP 106/67
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
[2019-08-11 12:17] VITALS: BP 105/73
[2019-08-11] MEDS ORDERED: MAXIPIME 2 GM AD2 GM IV (12:19)
[2019-08-11] MEDS ORDERED: MUPIROCIN22 GM TOP (12:19)
[2019-08-11] MEDS ORDERED: ZINC OXIDE56.7 GM TOP (12:19)
--- NOTE | 2019-08-11 15:43 | NUR ---
DISCHARGE NOTE: SW reviewed chart and spoke with nursing and attending physician. Pt is medically stable for discharge back to [facility] today. network planner coordinated. Ambulance transportation scheduled for 1600. SW spoke with pt's mother via phone to provide update and discuss discharge time. Pt's mother is agreeable with plan and requests pt be wrapped in heated blankets for transfer. SW notified nursing. Chart copy ordered. Nursing provided with number to call report. No additional SW needs identified at this time, but is available to assist should needs arise.
--- NOTE | 2019-08-11 16:15 | NUR ---
1410 PT DISCHARGE TO [facility], REPORT GIVEN TO MICKEY CONTRERAS. PT MOTHER UPDATED. PT BELONGINGS AND CHART GIVEN TO EMS.
== END 2019-08-11 16:30 | DRG 871 ==
LOC: ER 15:24 → EROBS 20:34 → 3W 22:26
PROVIDERS: Hospitalist; Internal Medicine; Internal Medicine Infectious Disease; Internal Medicine Pulmonary Disease; Nurse Practitioner; Physician Assistant; ADMIT Internal Medicine
DX: A41.9 Sepsis, unspecified organism (principal); L89.133 Pressure ulcer of right lower back, stage 3; L89.323 Pressure ulcer of left buttock, stage 3; L89.313 Pressure ulcer of right buttock, stage 3; G82.50 Quadriplegia, unspecified; N39.0 Urinary tract infection, site not specified; T83.511A Infection and inflammatory reaction due to indwelling urethral catheter, initial encounter; E44.1 Mild protein-calorie malnutrition; J96.11 Chronic respiratory failure with hypoxia; E87.0 Hyperosmolality and hypernatremia; G93.1 Anoxic brain damage, not elsewhere classified; I12.9 Hypertensive chronic kidney disease with stage 1 through stage 4 chronic kidney disease, or unspecified chronic kidney disease; R65.10 Systemic inflammatory response syndrome (SIRS) of non-infectious origin without acute organ dysfunction; N18.9 Chronic kidney disease, unspecified; E11.22 Type 2 diabetes mellitus with diabetic chronic kidney disease; K21.9 Gastro-esophageal reflux disease without esophagitis; R13.10 Dysphagia, unspecified; L89.159 Pressure ulcer of sacral region, unspecified stage; N20.0 Calculus of kidney; K52.9 Noninfective gastroenteritis and colitis, unspecified; S90.411A Abrasion, right great toe, initial encounter; Z66 Do not resuscitate; Z51.5 Encounter for palliative care; Z93.1 Gastrostomy status; Z89.612 Acquired absence of left leg above knee; Z93.0 Tracheostomy status; Z68.23 Body mass index [BMI] 23.0-23.9, adult; Z79.899 Other long term (current) drug therapy; X58.XXXA Exposure to other specified factors, initial encounter; Y93.89 Activity, other specified; Y92.89 Other specified places as the place of occurrence of the external cause; Y99.8 Other external cause status
CPT/HCPCS: 10879

== ENCOUNTER 2019-09-20 14:26 | Inpatient (IN) | payer OTHER ==
[~2019-09-20] VITALS: Ht 175.3 cm; Wt 69.9 kg
[~2019-09-20 14:26] MED LIST changes: +MAXIPIME 2 GM AD2 GM IV; +MUPIROCIN22 GM TOP; +ZINC OXIDE56.7 GM TOP
[2019-09-20 14:29] VITALS: BP 125/73
[2019-09-20 15:07] LABS: HEMATOCRIT 41.8 % (42.0-52.0); HEMOGLOBIN 13.6 gm/dL (14.0-18.0); MCH 28.7 pg (26.0-34.0); MCHC 32.6 g/dL (28.0-37.0); PLATELET COUNT 187 thou/uL (150-400); RBC 4.75 mil/uL (4.50-6.00); RDW 15.5 % (10.5-14.5); WBC 12.6 thou/uL (4.0-11.0)
[2019-09-20 15:17] LABS: CALCIUM 8.8 mg/dL (8.5-10.1); CREATININE 0.9 mg/dL (0.7-1.3); POTASSIUM 3.7 mmol/L (3.5-5.1)
[2019-09-20 15:23] LABS: ALBUMIN 3.1 g/dL (3.4-5.0); TOTAL BILIRUBIN 0.4 mg/dL (<0.1-1.0); TOTAL PROTEIN 9.9 g/dL (6.4-8.2)
[2019-09-20 16:05] LABS: URINE BILIRUBIN NEGATIVE (Negative); URINE BLOOD 3+ (Negative); URINE CLARITY CLOUDY; URINE COLOR YELLOW; URINE GLUCOSE-RANDOM* NEGATIVE (Negative); URINE KETONES TRACE (Negative); URINE NITRITE-REFLEX NEGATIVE (Negative); URINE PROTEIN (DIPSTICK) 3+ (Negative); URINE SPECIFIC GRAVITY >= 1.030 (1.005-1.035); URINE UROBILINOGEN 0.2 E.U./dl (0.2-1.0)
[2019-09-20 16:06] LABS: URINE LEUKOCYTES-REFLEX 2+ (Negative)
[2019-09-20 16:11] LABS: ABSOLUTE NEUTROPHILS 10.1 thou/uL (1.4-8.2); ANISOCYTOSIS SLIGHT; ATYPICAL LYMPHS 2 %; LARGE PLATELETS OCCASIONAL; METAMYELOCYTES 1 %; PLATELET ESTIMATE NORMAL
[2019-09-20 16:14] LABS: SQUAMOUS 0-3 Few /LPF (0-3); URINE WBC-REFLEX >25 Many /HPF (0-5); WBC CLUMPS Packed (None Seen)
[2019-09-20 16:15] LABS: HYALINE CASTS 0-3 Few /LPF (None Seen)
[2019-09-20 16:16] LABS: BACTERIA-REFLEX >30 Many /HPF (None Seen); CRYSTALS None Seen /LPF (None Seen)
[2019-09-20 16:36] LABS: BE(vivo) 0.4 mmol/L (-2 to +3); HCO3 21.9 mmol/L (22.0-26.0); PCO2 27.4 mmHg (35.0-45.0); PO2 185.1 mmHg (80.0-100.0); sO2 99.4 % (92.0-98.0)
[2019-09-21] VITALS (29 sets, daily range): BP systolic 108–155; BP diastolic 53–92
[2019-09-21 07:58] LABS: HEMATOCRIT 37.7 % (42.0-52.0); HEMOGLOBIN 12.3 gm/dL (14.0-18.0); MCH 28.8 pg (26.0-34.0); MCHC 32.7 g/dL (28.0-37.0); MCV 88.2 fL (80.0-100.0); RBC 4.28 mil/uL (4.50-6.00); WBC 6.9 thou/uL (4.0-11.0)
[2019-09-21 08:28] LABS: CALCIUM 8.6 mg/dL (8.5-10.1); CREATININE 0.6 mg/dL (0.7-1.3); POTASSIUM 3.3 mmol/L (3.5-5.1)
--- NOTE | 2019-09-21 09:25 | NUR ---
REPORT GIVEN TO MORTAR MAN- CHANGING ROOM TO 249 PER ICU NURSE
--- NOTE | 2019-09-21 12:17 | NUR ---
1000 PT ADMIT FROM ER HOLDING. CHG BATH, PT SOILED AND FOUL SMELLING. PLACED ON MONITOR AND VENT. TRACH CHANGED IN ED @ 0200 TO CUFFED. PRN TYLENOL GIVEN. PT RESTLESS AND PULLS AT VENT WHEN TURNED AND CLEANED. 1130 DR ORANTES AT BEDSIDE, STARTING HOME MEDS. PT'S MOTHER CALLED, VOICE MESSAGE LEFT. CONSULTS FOR WOUND CARE, WILL TAKE WOUND PICTURES.
--- NOTE | 2019-09-21 12:34 | EKG ---
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 : 1985 Requested By: Cecile Brown Order Number: [id number] MD: Sebastian Billings Measurements Intervals [place] Rate: 169 P: 57 NM: 117 QRS: -15 QRSD: 81 T: 57 QT: 314 QTc: 527 Interpretive Statements Sinus tachycardia Poor R wave progression Prolonged QT interval Compared to ECG 08/06/2019 08:28:24 No significant change was found Electronically Signed On 09-21-2019 8:50:11 TECHNICAL SALES REPRESENTATIVE by Sebastian Billings [email or web address] <ELECTRONICALLY SIGNED> By: Sebastian Billings MD, [facility] 09/21/19 0850 1429 1429 Sebastian Billings MD, [facility] /EPI
[2019-09-21 13:02] LABS: CALCIUM 8.4 mg/dL (8.5-10.1); CREATININE 0.5 mg/dL (0.7-1.3); MAGNESIUM 2.2 mg/dL (1.8-2.4); POTASSIUM 3.7 mmol/L (3.5-5.1)
--- NOTE | 2019-09-21 13:37 | NUR ---
Nutrition: REC initiate Tube feeds as appropriate. REC Vital AF 1.2 formula to reach 65 mL/hr goal rate.
--- NOTE | 2019-09-21 23:38 | NUR ---
TUBE FEED JEVITY AF 1.2 STARTED AT 25ML/HR WITH A GOAL OF 65ML/HR PER DIETARY REC. WILL MONITOR RESIDUAL Q4H AND INCREASE RATE OF INFUSION PT TOLERATES PER DR. ORANTES.
[2019-09-22] VITALS (24 sets, daily range): BP systolic 99–146; BP diastolic 53–80
[2019-09-22 05:50] LABS: CALCIUM 8.3 mg/dL (8.5-10.1); CREATININE 0.5 mg/dL (0.7-1.3); POTASSIUM 3.6 mmol/L (3.5-5.1)
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
--- NOTE | 2019-09-22 10:55 | NUR ---
ON THE VENT PER TRACH, VITALS STABLE AND NO SIGNS OF DISTRESS NOTED. TOLERATING TUBEFEEDING WITH MINIMAL RESIDUALS AND INCREASING SLOWLY AT THIS TIME. PATIENT AT TIMES MOVES ARMS AND DISCONNECTS TRACH TUBING, MITTENS ON BILATERAL HANDS. MOTHER UPDATED OVER THE PHONE. WILL CONTINUE WITH CURRENT POC.
[2019-09-22 15:55] LABS: BE(vivo) 1.6 mmol/L (-2 to +3); HCO3 24.6 mmol/L (22.0-26.0); PCO2 33.4 mmHg (35.0-45.0); PO2 83.2 mmHg (80.0-100.0); pH 7.485 (7.360-7.450)
--- NOTE | 2019-09-22 16:11 | NUR ---
PATIENT ON TRACH MASK, ABG RESULTS CALLED TO DR. ORANTES AND ORDERS RECEIVED TO LEAVE OFF VENT UNLESS IN DISTRESS. RT SHANNON NOTIFIED. ORDERS ALREADY IN [facility] FOR TRANSFER TO [facility] BY DR. MAHNOEY EARLIER TODAY.
[2019-09-23] VITALS (12 sets, daily range): BP systolic 114–158; BP diastolic 61–78
--- NOTE | 2019-09-23 03:45 | NUR ---
AN EPISODE OF EMESIS WITNESSED BY RT WHILE SUCTIONING TRACH. RT NOTED EMESIS TO BE SIMILAR COLOR OF TUBE FEED. PATIENT ASSESSED. LUNG SOUNDS REMAIN THE SAME. O2 SATURATIONS REMAIN AT 100% ON 35% VIA TRACH SHIELD. TUBE FEEDING STOPPED.
[2019-09-23 08:02] LABS: BE(vivo) -0.3 mmol/L (-2 to +3); HCO3 23.6 mmol/L (22.0-26.0); PCO2 36.3 mmHg (35.0-45.0); PO2 95.7 mmHg (80.0-100.0); pH 7.431 (7.360-7.450); sO2 97.5 % (92.0-98.0)
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
--- NOTE | 2019-09-23 19:48 | NUR ---
PT REMAINED NPO THIS SHIFT, ORDERED TO RESUME TUBE FEEDING THIS EVENING AT GOAL RATE OF 30, HALF OF PREVIOUS GOAL PER DR. JOHNS. PT HAD 1 EPISODE OF EMESIS THIS SHIFT, UNMEASURABLE. PATIENT REMAINS NONVERBAL AND UNABLE TO COMMUNICATE WITH STAFF IN NON VERBAL FORM EITHER. PT ABLE TO SQUEEZE LEFT HAND TIGHT OR MOVE RIGHT HAND TO ATTEMPT TO REMOVE TRACH & TRACH SHIELD. PT REMAINS IN MITTEN RESTRAINTS. FALL PRECAUTIONS IN PLACE.
[2019-09-24] VITALS (25 sets, daily range): BP systolic 114–151; BP diastolic 61–91
--- NOTE | 2019-09-24 06:29 | NUR ---
ASSUMED PT CARE AT 1900. VSS. PT AWAKE, CONTRACTED, OFTEN MOUTHS "OW", PRN PAIN MED GIVEN. SITE CARE DONE TO PEG TUBE INSERTION SITE. PT HAD 1700 UO THIS SHIFT. ORAL CARE DONE PRN. TUBE FEEDING RESTARTED AT 30ML/HR WHICH IS THE GOAL. FEQUENT TURNS ON PT. PT IS STABLE. WILL CONTINUE TO MONITOR PER POC. SLOWLY PROGRESSING TOWARDS POC
--- NOTE | 2019-09-24 12:30 | NUR ---
CHECKED RESIDUAL TUBE FEEDINGS ON PT AND FOUND IT TO BE 125 MLS. TUBE FEEDINGS WERE PUT ON HOLD AND DR. JOHNS WAS PAGED. ONCE PROVIDER WAS NOTIFIED SHE ORDERED FOR TUBE FEEDINGS TO BE HELD FOR 1 HOUR THEN RESTARTED AT 15 MLS/H. NURSE WILL CONTINUE TO MONITOR.
[2019-09-25] VITALS (20 sets, daily range): BP systolic 105–151; BP diastolic 56–78
--- NOTE | 2019-09-25 04:13 | NUR ---
NO OVERNIGHT EVENTS. PT. RESTED WELL, DROWSY THROUGHOUT THE NIGHT AROUSES EASILY TO TACTILE SIMULATION. ASSESSMENTS AND VITAL SIGNS CHARTED. PT. MAINTAINING O2 SAT ABOVE 95% WITH TRACH SHIELD. PT. IS PROGRESSING TOWARDS GOALS. CONTINUE TO FOLLOW POC. WILL CONTINUE TO MONITOR.
[2019-09-25 05:27] LABS: ABSOLUTE NEUTROPHILS 2.6 thou/uL (1.4-8.2); BASOPHILS 0.4 % (0.0-2.0); EOSINOPHILS 1.3 % (0.0-3.0); HEMATOCRIT 37.1 % (42.0-52.0); HEMOGLOBIN 12.1 gm/dL (14.0-18.0); LYMPHOCYTES 43.4 % (24.0-44.0); MCH 28.7 pg (26.0-34.0); MCHC 32.6 g/dL (28.0-37.0); MCV 88.1 fL (80.0-100.0); MONOCYTES 7.8 % (1.0-8.0); PLATELET COUNT 153 thou/uL (150-400); POLYS 47.1 % (36.0-66.0); RBC 4.21 mil/uL (4.50-6.00); RDW 14.9 % (10.5-14.5); WBC 5.6 thou/uL (4.0-11.0)
[2019-09-25 05:40] LABS: CALCIUM 8.3 mg/dL (8.5-10.1); CREATININE 0.5 mg/dL (0.7-1.3); MAGNESIUM 1.8 mg/dL (1.8-2.4); PHOSPHORUS 2.8 mg/dL (2.5-4.9); POTASSIUM 3.5 mmol/L (3.5-5.1)
--- NOTE | 2019-09-25 17:17 | NUR ---
PT has transfer orders for critical care with tele. His new room is 359. Nurse contacted his mother at 1700 and informed her of transfer. She was agreeable. Nurse called and gave report. She verbalized understanding. PT will be transferred via bed with nurse escort.
--- NOTE | 2019-09-25 20:26 | NUR ---
pt was transfered from ICU about 1800pm, pt is on trach mask o2 35%, pt has R hand mitten,RN has started IV fluids and tube feeding as order , pt's vs and o2sat are stable at this time.
[2019-09-26 04:03] VITALS: BP 131/67
[2019-09-26 05:37] LABS: ABSOLUTE NEUTROPHILS 1.9 thou/uL (1.4-8.2); BASOPHILS 0.4 % (0.0-2.0); EOSINOPHILS 2.9 % (0.0-3.0); HEMATOCRIT 36.6 % (42.0-52.0); HEMOGLOBIN 11.9 gm/dL (14.0-18.0); LYMPHOCYTES 45.9 % (24.0-44.0); MCH 28.7 pg (26.0-34.0); MCHC 32.6 g/dL (28.0-37.0); MCV 88.3 fL (80.0-100.0); MONOCYTES 8.5 % (1.0-8.0); PLATELET COUNT 163 thou/uL (150-400); POLYS 42.3 % (36.0-66.0); RBC 4.14 mil/uL (4.50-6.00); RDW 15.2 % (10.5-14.5); WBC 4.5 thou/uL (4.0-11.0)
[2019-09-26 06:15] LABS: CALCIUM 8.3 mg/dL (8.5-10.1); CREATININE 0.5 mg/dL (0.7-1.3); MAGNESIUM 1.8 mg/dL (1.8-2.4); PHOSPHORUS 2.9 mg/dL (2.5-4.9); POTASSIUM 3.2 mmol/L (3.5-5.1)
--- NOTE | 2019-09-26 07:39 | NUR ---
ASSUMED PT CARE AT 1900. VSS. PT NON VERBAL WITH TRACH. PT COUGHS AND HAS SOME BLOOD TINGED SPUTUM. TUBE FEEDING TITRATED UP TO 20ML/HR AFTER RESIDUAL WAS CHECKED 3 TIMES AND IT WAS 0. PT IS STABLE. ASSESMENTS AND MEDS GIVEN ARE CHARTED. WILL CONTINUE TO MONITOR PER POC.
[2019-09-26 08:37] VITALS: BP 132/78
[2019-09-26 11:37] VITALS: BP 125/78
--- NOTE | 2019-09-26 15:04 | NUR ---
TF RECOMMENDATIONS: -REC gradual increases in TF rate today by 10 ml q 8 hrs as tolerated to Goal Rate 65 ml/hr with Vital AF 1.2. Today is day 6 with inadequate enteral nutrition infusion. -REC standard water flush amounts of 30 ml before/after meds, 30 ml q 4 hrs during continuous feeds while receiving IVFs. -REC avoid holding/lowering TF rate if residuals < 250 ml.
--- NOTE | 2019-09-26 15:52 | NUR ---
DISCHARGE PLANNING. PATIENT ADMITTED FROM [facility]. PLAN IS FOR PATIENT TO RETURN TO [facility] ONCE MEDICALLY READY. PATIENT CLINICALS FAXED TO [facility]. ANTICIPATED DISCHARGE PLANNED FOR TOMORROW. CALL PLACED TO [facility] TO NOTIFY.
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
[2019-09-26 17:13] LABS: MAGNESIUM 2.3 mg/dL (1.8-2.4); POTASSIUM 3.2 mmol/L (3.5-5.1)
[2019-09-26 19:25] VITALS: BP 126/73
--- NOTE | 2019-09-26 19:52 | NUR ---
pt is unverbal and he cannot follow commands, pt is continuing trach mask o2 35%, and iv abx, pt's vs and o2sat are stable, pt is tolerated tube feeding at 30ml/hr at this time.
[2019-09-27 01:10] LABS: ADENOVIRUS Negative (Negative); INFLUENZA B Negative (Negative); METAPNEUMOVIRUS Negative (Negative); PARAINFLUENZA 1 Negative (Negative); PARAINFLUENZA 2 Negative (Negative); PARAINFLUENZA 3 Negative (Negative); RHINOVIRUS Negative (Negative); RSV A Negative (Negative); RSV B Negative (Negative)
--- NOTE | 2019-09-27 03:36 | NUR ---
Pt. has been repositioned. Right hand mitt for safety. Trach shield at 35% with O2 sat in the mid to upper 90's. No respiratory distress. Afebrile. Tolerating tube feeding well with minimal gastric residual. Low K level ,replaced per electrolyte protocol. Making progress towards care plan goals.
[2019-09-27 04:07] VITALS: BP 124/71
[2019-09-27 08:19] VITALS: BP 133/68
[2019-09-27 11:31] VITALS: BP 108/68
[2019-09-27] MEDS ORDERED: AUGMENTIN 875-1 EACH PER TUBE (11:39)
--- NOTE | 2019-09-27 14:35 | NUR ---
DISCHARGE NOTE: SW reviewed chart and spoke with nursing and attending physician. Pt is medically stable for [facility]. Attending physician spoke with pt's mother this morning to notify of discharge. SW received call from pt's mother regarding discharge. maintenance planner arranged ambulance transportation through [employer]. SW updated pt's mother via phone. Pt's mother is agreeable with discharge. SW updated Gabriela with [facility]. Chart copy requested. Nursing to call report. No additional SW needs identified at this time, but is available to assist should needs arise.
--- NOTE | 2019-09-27 16:23 | NUR ---
Left per transport to facility where he resides. Report called to Katheryn Gross "window unit air conditioning mechanic". stable vs at time of transfer.
== END 2019-09-27 15:32 | DRG 870 ==
LOC: ER 14:26 → EROBS 16:39 → ICU 09-21 10:05 → 3W 09-25 17:36
PROVIDERS: Emergency Medicine Emergency Medical Services; Hospitalist; Internal Medicine; Internal Medicine Pulmonary Disease; ADMIT Internal Medicine
PROC: B548ZZA Ultrasonography of Superior Vena Cava, Guidance (ICD-10-PCS; principal; 2019-09-20)
PROC: 5A1955Z Respiratory Ventilation, Greater than 96 Consecutive Hours (ICD-10-PCS; principal; 2019-09-20)
PROC: 02HV33Z Insertion of Infusion Device into Superior Vena Cava, Percutaneous Approach (ICD-10-PCS; principal; 2019-09-20)
PROC: B5181ZA Fluoroscopy of Superior Vena Cava using Low Osmolar Contrast, Guidance (ICD-10-PCS; principal; 2019-09-20)
DX: A41.9 Sepsis, unspecified organism (principal); L89.153 Pressure ulcer of sacral region, stage 3; G82.50 Quadriplegia, unspecified; J96.21 Acute and chronic respiratory failure with hypoxia; J69.0 Pneumonitis due to inhalation of food and vomit; N39.0 Urinary tract infection, site not specified; Z99.11 Dependence on respirator [ventilator] status; K59.2 Neurogenic bowel, not elsewhere classified; G93.1 Anoxic brain damage, not elsewhere classified; E44.1 Mild protein-calorie malnutrition; I12.9 Hypertensive chronic kidney disease with stage 1 through stage 4 chronic kidney disease, or unspecified chronic kidney disease; N18.9 Chronic kidney disease, unspecified; E11.22 Type 2 diabetes mellitus with diabetic chronic kidney disease; K21.9 Gastro-esophageal reflux disease without esophagitis; Z96.0 Presence of urogenital implants; G40.909 Epilepsy, unspecified, not intractable, without status epilepticus; E11.621 Type 2 diabetes mellitus with foot ulcer; N31.9 Neuromuscular dysfunction of bladder, unspecified; Y95 Nosocomial condition; E87.6 Hypokalemia; D64.9 Anemia, unspecified; L97.511 Non-pressure chronic ulcer of other part of right foot limited to breakdown of skin; Z93.0 Tracheostomy status; Z93.1 Gastrostomy status; Z89.612 Acquired absence of left leg above knee; Z79.899 Other long term (current) drug therapy; Z83.3 Family history of diabetes mellitus; Z82.49 Family history of ischemic heart disease and other diseases of the circulatory system; Z84.1 Family history of disorders of kidney and ureter; Z68.22 Body mass index [BMI] 22.0-22.9, adult
CPT/HCPCS: 10078; 10203; 10879

== ENCOUNTER → 2019-10-27 | Outpatient (CLI) | payer OTHER ==
[~2019-10-27] MED LIST changes: +AUGMENTIN 875-1 EACH PER TUBE
== END ==
LOC: CATH 10-20 11:21
DX: Z45.2 Encounter for adjustment and management of vascular access device (principal)

== ENCOUNTER 2019-12-02 15:42 | Emergency (ER) | payer OTHER ==
[~2019-12-02] VITALS: Ht 175.3 cm; Wt 77.1 kg
[2019-12-02 16:42] VITALS: BP 94/50
== END 2019-12-02 19:30 ==
LOC: ER 15:42
DX: K94.23 Gastrostomy malfunction (principal); I10 Essential (primary) hypertension; E11.9 Type 2 diabetes mellitus without complications; K21.9 Gastro-esophageal reflux disease without esophagitis; Z79.899 Other long term (current) drug therapy; Y92.89 Other specified places as the place of occurrence of the external cause

== ENCOUNTER 2019-12-02 21:32 | Emergency (ER) | payer OTHER ==
[~2019-12-02] VITALS: Ht 175.3 cm; Wt 77.1 kg
[2019-12-02 23:53] VITALS: BP 98/58
== END 2019-12-02 23:54 ==
LOC: ER 21:32
DX: K94.23 Gastrostomy malfunction (principal); I10 Essential (primary) hypertension; E11.9 Type 2 diabetes mellitus without complications; K21.9 Gastro-esophageal reflux disease without esophagitis; Z79.899 Other long term (current) drug therapy

== ENCOUNTER 2019-12-16 22:21 | Inpatient (IN) | payer OTHER ==
[~2019-12-16] VITALS: Ht 175.3 cm; Wt 73.4 kg
[2019-12-16 22:23] VITALS: BP 120/78
[2019-12-16 22:48] LABS: BE(vivo) 1.2 mmol/L (-2 to +3); HCO3 24.9 mmol/L (22.0-26.0); PCO2 36.8 mmHg (35.0-45.0); PO2 97.3 mmHg (80.0-100.0); pH 7.449 (7.360-7.450); sO2 97.7 % (92.0-98.0)
[2019-12-16 23:32] LABS: HEMATOCRIT 40.2 % (42.0-52.0); HEMOGLOBIN 13.4 gm/dL (14.0-18.0); MCH 27.7 pg (26.0-34.0); MCHC 33.4 g/dL (28.0-37.0); MCV 83.2 fL (80.0-100.0); PLATELET COUNT 214 thou/uL (150-400); RBC 4.83 mil/uL (4.50-6.00); WBC 22.9 thou/uL (4.0-11.0)
[2019-12-16 23:43] LABS: URINE BILIRUBIN NEGATIVE (Negative); URINE BLOOD TRACE (Negative); URINE CLARITY CLOUDY; URINE COLOR YELLOW; URINE GLUCOSE-RANDOM* NEGATIVE (Negative); URINE KETONES NEGATIVE (Negative); URINE PROTEIN (DIPSTICK) 1+ (Negative); URINE SPECIFIC GRAVITY 1.015 (1.005-1.035); URINE UROBILINOGEN 0.2 E.U./dl (0.2-1.0)
[2019-12-16 23:43] LABS: CALCIUM 8.4 mg/dL (8.5-10.1); CREATININE 0.8 mg/dL (0.7-1.3)
[2019-12-16 23:44] LABS: URINE LEUKOCYTES-REFLEX 2+ (Negative); URINE NITRITE-REFLEX POSITIVE (Negative)
[2019-12-16 23:48] LABS: TOTAL BILIRUBIN 0.8 mg/dL (<0.1-1.0); TOTAL PROTEIN 9.9 g/dL (6.4-8.2)
[2019-12-16 23:50] LABS: SQUAMOUS None Seen /LPF (0-3)
[2019-12-16 23:51] LABS: AMORPHOUS PHOSPHATES Many /LPF (None Seen); BACTERIA-REFLEX >30 Many /HPF (None Seen); CASTS None Seen /LPF (None Seen); MUCUS 0-3 Light strn/LPF (None Seen); TRIPLE PHOSPHATE CRYSTALS >10 Many /LPF (None Seen); URINE RBC 3-10 Few /HPF (0-2); URINE WBC-REFLEX >25 Many /HPF (0-5)
[2019-12-17] VITALS (8 sets, daily range): BP systolic 120–149; BP diastolic 64–90
--- NOTE | 2019-12-17 00:36 | NUR ---
CALLED TO GIVE REPORT.WAS TOLD NURSE IS WITH A PT AND WILL CALL BACK
[2019-12-17 00:54] LABS: ABSOLUTE NEUTROPHILS 19.7 thou/uL (1.4-8.2); ANISOCYTOSIS 1+
[2019-12-17 00:55] LABS: LARGE PLATELETS OCCASIONAL
--- NOTE | 2019-12-17 02:38 | NUR ---
TALKED WITH COTY'S MOTHER REGARDING ADMISSION AND ROOM NUMBER
[2019-12-17] MEDS ORDERED: IPRAT-ALBUT 0.5-3 ML (02:55)
[2019-12-17] MEDS ORDERED: FERROUS SU PER TUBE (03:00)
--- NOTE | 2019-12-17 10:02 | EKG ---
[facility] [place] [address] ELECTROCARDIOGRAM REPORT Name: COTY DUENAS Room #: 351-P ADM IN M.R.#: [id number] Admission: 12/17/19 Attend Phys: Leonidas Collado MD Discharge: Date of : 85 Report #: [id number] THIS REPORT FOR: cc: Ayan Castle MD, Srinath MD Lundgren,Sebastian Nur MD [facility] ~ THIS REPORT FOR: //name// [facility] ED Test Date: 2019-12-16 Test Time: 23:33:15 Pat Name: COTY DUENAS Department: Room: [facility] Gender: M Chief Of Safety And Protection: MARILYN : 1985 Requested By: [address] Order Number: [id number] MD: Sebastian Billings Measurements Intervals [place] Rate: 123 P: 55 [place]: 166 QRS: 6 QRSD: 89 T: 30 QT: 313 QTc: 448 Interpretive Statements Sinus tachycardia LVH by voltage Compared to ECG 09/20/2019 14:29:17 Heart rate has slowed Poor R-wave progression no longer present Electronically Signed On 12-17-2019 10:00:47 CDT by Sebastian Billings [email or web address] <ELECTRONICALLY SIGNED> By: Sebastian Billings MD, [facility] 12/17/19 1000 [phone] Sebastian Billings MD, [facility] /EPI
[2019-12-17 10:36] LABS: HEMATOCRIT 37.6 % (42.0-52.0); HEMOGLOBIN 12.3 gm/dL (14.0-18.0); MCH 27.4 pg (26.0-34.0); MCHC 32.6 g/dL (28.0-37.0); MCV 84.1 fL (80.0-100.0); RBC 4.47 mil/uL (4.50-6.00); RDW 16.8 % (10.5-14.5)
[2019-12-17 10:42] LABS: CALCIUM 7.8 mg/dL (8.5-10.1); CREATININE 0.9 mg/dL (0.7-1.3); POTASSIUM 3.6 mmol/L (3.5-5.1)
--- NOTE | 2019-12-17 11:18 | NUR ---
PT CARE ASSUMED AT 0700, PT ALERT, OPENS EYES SPONTANOUSLY, NONVERBAL. PT HAS A TRACH AND ON A VENT. CONTINOUS PULSE OX ON PT, SATING WNL. NO SIGNS OF DISTRESS NOTED. PT PEGTUBE IN PLACE, FLUSHED AND TF STARTED PER ORDER, HOB 30. PT REPOSITIONED EVERY 2 HOURS. BED AT LOWEST LEVEL WITH ALARM ON. WILL CONTINUE TO MONITOR.
--- NOTE | 2019-12-17 22:57 | NUR ---
PT IS NONVERBAL NONRESPONSIVE TO COMMANDS. HRR ST ON [facility]. 1202-130S. UPON ASSESSING PT NOTED 4X4 SATURATED WITH TUBE FEEDING FROM DAY SHIFT COVERED WITH TOWEL. CHECKED RESIDUAL 15 ML NOTED. SMALL AMT DARK BROWN DRAINAGE NOTED IN WITH TUBE FEEDING RESIDUAL. OLD TAPE NOTED AROUND FEEDING TUBE. TUBE FEEDING APPEARED TO BE LEAKING PROXIMAL TO PT AND ALSO HIGHER ALONG TUBE. FLUSHED WITH SMALL AMT OF WATER AND WATER LEAKED OUT OF TUBE. NOTIFIED ALVIN GREGORIO. PT NPO. TF OFF. GI CONSULT CALLED. CALLED BACK AND WILL SEE PT IN AM. ALVIN STATED SHE WOULD LOOK AT WHICH MEDS NEED TO BE CONVERTED TO IV AND LOOK AT IV FLUIDS. PT UNLABORED ON VENT FOR NOW.
--- NOTE | 2019-12-17 23:59 | NUR ---
NOTIFIED JOHNNIE GREGORIO RE BP ELEVATED. HYDRALAZINE ORDERED IV.
--- NOTE | 2019-12-18 00:03 | NUR ---
REPORTED TEMP 103 TO GONSALO GREGORIO AND RLE BEET RED FROM THIGH TO TOES. SHE STATED SHE WOULD COME BY TO SEE HIM . TYLENOL ORDERED RECTALLY. WAITING FOR PHARMACY TO PUT IN MED.
[2019-12-18 03:03] VITALS: BP 140/81
--- NOTE | 2019-12-18 06:13 | NUR ---
PT RESTING QUIETLY PRESENTLY. NPO SINCE PEG TUBE WAS LEAKING. DR Lucas IS AWARE . Gi was consulted. meds given as ordered. Held all po meds. Temp better now after tylenol suppository givemn.
[2019-12-18 08:11] VITALS: BP 154/82
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
[2019-12-18 15:17] VITALS: BP 186/86
--- NOTE | 2019-12-18 17:49 | NUR ---
PATIENT CONT ON TRACH (T-TUBE) AND SATS HAVE STAYED ABOVE 98% THROUGH THE DAY. HE IS TOLERATING WELL. WOUND CHANGE COMPLETED.TRACH CARES COMPLETED. PEG TUBE SITE CARES COMPLETED. WILL CONT WITH PLAN OF CARE.
--- NOTE | 2019-12-18 19:37 | NUR ---
1900 assumed care of pt after report from Neil AREVALO PT IS TO BE KEPT MEDS ONLY PER TUBE AND HOLD TUBE FEEDS PER NEIL AREVALO, SECONDARY TO OLD TUBE LEAKING TUBE FEEDS, SO WILL ONLY USE FOR MEDS. PT IS FALL RISK, AND FALL PRECAUTIONS IN PLACE.
[2019-12-18 20:03] VITALS: BP 144/84
[2019-12-18 23:54] VITALS: BP 150/76
[2019-12-19 04:30] VITALS: BP 138/72
--- NOTE | 2019-12-19 10:07 | NUR ---
Nutrition: Agree with Ordered tube feeding regimen of Vital AF at 65 mL/hr to meet 100-110% of needs following GI evaluation of PEG tube. Pt receiving > 5 Liters in fluid/day between IVFs, Piggybacks, water flushes and free water from tube feeds. REC D/C IVFs.
[2019-12-19 10:20] VITALS: BP 147/72
[2019-12-19 11:44] LABS: ABSOLUTE NEUTROPHILS 6.6 thou/uL (1.4-8.2); BASOPHILS 0.2 % (0.0-2.0); EOSINOPHILS 1.3 % (0.0-3.0); HEMATOCRIT 32.9 % (42.0-52.0); HEMOGLOBIN 10.8 gm/dL (14.0-18.0); LYMPHOCYTES 17.7 % (24.0-44.0); MCH 27.5 pg (26.0-34.0); MCHC 32.9 g/dL (28.0-37.0); MCV 83.7 fL (80.0-100.0); MONOCYTES 7.4 % (1.0-8.0); POLYS 73.4 % (36.0-66.0); RBC 3.92 mil/uL (4.50-6.00); RDW 16.7 % (10.5-14.5)
[2019-12-19 11:52] LABS: CALCIUM 8.1 mg/dL (8.5-10.1); CREATININE 0.7 mg/dL (0.7-1.3); POTASSIUM 3.3 mmol/L (3.5-5.1)
[2019-12-19 13:39] LABS: PLATELET COUNT 156 thou/uL (150-400)
[2019-12-19 15:44] VITALS: BP 123/67
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
--- NOTE | 2019-12-19 18:19 | NUR ---
PATIENT HAD A NEW PEG TUBE PLACED TODAY. PATENT AND FLUSHES WITH NO DIFFICULTY. DID LOOK TO BE PAIN EALIER AND PRN PAIN MEDICATION ADMINISTERED IT WAS EFFECTIVE. NEW WOUND DRESSING APPLIED. WILL CONT WITH PLAN OF CARE.
[2019-12-19 19:40] VITALS: BP 128/70
[2019-12-20 01:44] VITALS: BP 139/71
[2019-12-20 03:07] LABS: GLYCOHEMOGLOBIN (HGB A1C) 5.1 % (4.8-5.6)
[2019-12-20 04:27] VITALS: BP 140/76
--- NOTE | 2019-12-20 07:28 | NUR ---
PT WAS TURNED RELIGIOUSLY Q2H THIS SHIFT. UPON INITIAL ASSESSMENT THE WOUND WAS BLEEDING MODERATE AMOUNT AND IT WAS INTERVENED PER ORDER. THE PRATHO BOOT WAS LEFT ON FOR DAY SHIFT DRESSING CHANGE. PT WAS SUCTIONED AT AN AVERAGE OF 2-4x PER HOUR. GOAL OF 65ML VITAL AF WAS REACHED THIS SHIFT AND D5 NS DISCONTINUED PER ORDER. BS WAS STABLE THIS SHIFT NO INSULIN HAD TO BE GIVEN. THERE WAS RESIDUAL OF 5cc. PT'S MOTHER RUSTY HAS CALLED COUPLE TIMES TO CHECK UP WELL. PT HAD A COPIOUS AMOUNT OF URINE OUTPUT WELL. CLOSE TO 2L. CATHETER CARE WAS PROVIDED. TYLER CARE WAS PROVIDED. FREQUENT TURNING WAS PROVIDED WELL.
[2019-12-20 07:48] VITALS: BP 135/75
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
--- NOTE | 2019-12-20 14:16 | NUR ---
DC enhanced precautions.
--- NOTE | 2019-12-20 15:57 | NUR ---
FAXED CLINICAL UPDATE TO [facility] SPOKE WITH ZACHERY IN ADM SHE RECEIVED UPDATE. DP TO FOLLOW.
--- NOTE | 2019-12-20 16:19 | NUR ---
SW reviewed chart and spoke with attending physician. Pt is off the vent and had peg tube replaced yesterday. Pt is progressing towards goals for discharge. Pt has had two negative COVID tests. regional planner to fax clinical info to [facility] for review. Pt will return to [facility] LTC when medically stable. YEIMI is following to assist as needed with discharge planning.
--- NOTE | 2019-12-20 16:57 | NUR ---
PATIENT HAS RESTED IN BED THROUGH THE DAY. CONT ON TTUBE OXYGEN SAT HAS REMAINED ABOVE 98% THROUGH THE DAY. RESPIRATIONS ARE NON LABORED. WOUND CONT TO HEAL ON COCCYX. WILL CONT WITH PLAN OF CARE.
[2019-12-20 19:52] VITALS: BP 131/72
[2019-12-20 21:13] VITALS: BP 142/87
--- NOTE | 2019-12-20 22:21 | NUR ---
PT WAS TRANSFERRED WITH RT ASSISTNACE TO EARLIER THIS SHIFT. RT TOOK THE VENTILATOR DOWN PRIOR TO PATIENT'S DEPARTURE TO ENSURE CONTIUNITY OF CARE. ALL LINES WERE PURPOSEFULLY DISCONNECTED AND LOCKED PRIOR TO DEPARTURE. PT DID NOT APPEAR TO BE IN DISTRESS AT THE TIME OF DEPARTURE WHEN UTILIZING THE LANGLEY BRO FACES SCALE. ALL NECESSARY CARE REPORT WAS PROVIDED TO THE RECEIVING RN. ALL CARE RELATED EQUIPMENTS WERE PLACED IN A CART ALONG WITH PATIENT BELONGINGS AND MEDICATIONS AND SENT DOWN WITH THE PATIENT WELL. LAST CARDIAC RHYTHM STRIP WAS INTERPRETED AND CHARTED. THE KANGAROO FEEDING PUMP WAS SENT DOWN WITH THE PT WELL. THIS RN IS SIGNING OFF AT THIS TIME.
[2019-12-21 03:54] VITALS: BP 128/79
[2019-12-21 08:00] VITALS: BP 120/65
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
--- NOTE | 2019-12-21 14:08 | PATH ---
[facility] [place] [address] PATHOLOGY RPT PROCEDURE Name: COTY DUENAS Room #: 204-P ADM IN M.R.#: [id number] Admission: 12/17/19 Date of : 85 Discharge: Report #: [id number] Path Case #: [id number] LCA Accession Number: [id number] . 01 Material submitted: . stomach - BX OF GASTRITIS . 01 Clinical history: . Dysphagia rule H. pylori . 02 Diagnosis: Gastric biopsy "biopsy gastritis": - Mild chronic reactive gastropathy with mild chronic inflammation. - The immunoperoxidase stain for Helicobacter pylori is negative. - There is no evidence of atypia or malignancy. (SHA:desirae; ) S 12/21/2019 1149 Local . 02 Electronically signed: . Rafael Solis MD, Pathologist NPI- [id number] . 01 Gross description: . The specimen is received in formalin, labeled "Coty Duenas, BX gastritis" and consists of multiple fragments of doyle tissue measuring 1.1 x 0.5 x 0.2 cm in aggregate which are entirely submitted in A1. (SDY; 12/20/2019) SYU/SYU 12/20/2019 1152 Local . 02 Pathologist provided ICD-10: K31.9, K29.50 . 02 CPT . 682209, [id number] Specimen Comment: A courtesy copy of this report has been sent to [phone], [phone] Specimen Comment: [phone], Specimen Comment: Report sent to ,DR MATHEWS / DR SOSA Performed at: 01 [facility] [address] [id number] MD Gonzalo Castaneda MD Phone: [phone] Performed at: [address] [id number] MD Lc Arriaza MD Phone: [phone]
--- NOTE | 2019-12-21 15:32 | NUR ---
Patient quadraplegic admits from ltc at [facility]. Patient has been vented at night question if need for LTAC. Sp with Dr Whalen patient with need for increase trach suction possible IPV. Sp with [facility] who will inquire into their plan of care for patient regarding trach suctions. They do not have RT on staff at facility. Await POC for patient from facility if can meet needs.
--- NOTE | 2019-12-21 16:37 | NUR ---
Patient admits from [facility] they have RT at facility. DIscussed with [facility] patient on vent at night. Dr Whalen reports patient needs IPV or some increase suctioning at facility. Facility to inquire into patients poc for resp status.
--- NOTE | 2019-12-21 17:18 | NUR ---
Assumed care approx 0700. Assessments as charted and VSS. Pt resting in bed with no signs of respiratory distress this shift. Wound care given, pictures taken and placed in chart this shift. Pt's mother given clinical update and denied any questions or concerns.
[2019-12-21 18:00] VITALS: BP 140/81
[2019-12-21 19:44] VITALS: BP 127/66
--- NOTE | 2019-12-22 03:39 | NUR ---
ASSUMED PT CARE AT THE CHANGE OF SHIFT, NONVERBAL, DISORIENTEDX4, SR ON THE MONITOR, ASSESSMENTS CHARTED, ON CPAP, O2SATS STABLE AT 100%, SUCTIONING MAINTAINED PRN, QTURNS MAINTAINED, MEDICATIONS ADMINISTERED ORDERED,PAIN MEDICATION GIVEN SCHEDULED, RESTING, NO RESPIRATORY DISTRESS NOTED AT THIS TIME, WILL CONTINUE TO MONITOR
[2019-12-22 03:51] VITALS: BP 107/82
[2019-12-22 07:30] VITALS: BP 118/64
[2019-12-22] MEDS ORDERED: PREVACID 15 MG15 M4 DISSOLVE (08:40)
[2019-12-22] MEDS ORDERED: METOPROLOL TART25 MG PER TUBE (08:40)
[2019-12-22] MEDS ORDERED: GENTAMICIN SULF15 GM TOP (08:40)
--- NOTE | 2019-12-22 10:34 | NUR ---
PT DISCHARGING TODAY BACK TO [facility] FAXED DC ORDERS/SUMMARY RECEIVED CONFIRMATION AND SPOKE WITH WILFREDO IN ADM THAT I WOULD SET UP TRANSPORT BY AMBULANCE THROUGH [facility] TRIP# [id number] FOR 1230 TODAY. LEFT VOICEMAIL WITH PT'S MOTHER (FRANSISCO) OF DC AND TIME OF TRANSPORT. UNIT NOTIFIED AND CHART COPY PER US. RN TO CALL REPORT TO [phone].
[2019-12-22 11:30] VITALS: BP 105/52
--- NOTE | 2019-12-22 14:46 | NUR ---
Pt dcing back to [facility] ltc this afternoon via [facility] at 5pm. Dc senior buyer planner has notified the care team and pt's mother. Chart copy is ready to be sent with the pt and nursing to call report. Their RT has spoken with pulmonary, Dr. Whalen and they are ordering a trilogy for the pt and they will have it in place in 1-[address] Whalen ok with dc today and humidified air per t tube tonight. The attending and care team updated. Dc senior buyer planner to fax the pulm recommendations and dc summary again this afternoon. Case closed.
[2019-12-22 16:30] VITALS: BP 130/71
--- NOTE | 2019-12-22 18:25 | NUR ---
ASSESSMENT CHARTED. DISCHARGED ORDERS TO SNF ON HOLD. TOLERATED TUBE FEEDING @ 65ML/HR. TURNED AND REPOSITIONED Q 2 HRS AND NEEDED. WOUND CARE PROVIDED. TRACH INTACT. SUCTIONED NEEDED. RT TREATMENT PROVIDED. WILL CONTINUE TO MONITOR.
[2019-12-22 20:07] VITALS: BP 130/69
[2019-12-23 04:14] VITALS: BP 126/63
--- NOTE | 2019-12-23 05:04 | NUR ---
PT ALERT AND NOT ORIENTED. NONVERBAL. TOTAL PT CARE. NPO. CONTINOUS TF VITAL 1.2 @65 CC/HR 150 CC FLUSH Q4H. HAS SP CATH INCONT OF BOWEL. TOLERATED VENT NOC. TURN/REPO Q4H. PT HAS SACRAL PRESSURE ULCER WOUND THAT WAS BLEEING AT HS CLEANED ZGUARD APPLIED AND ABD BINDER DRESSING APPLIED LIGHTLY. ACCHU CHECKS Q6H. PT IS QUAD WITH [facility] CONTRACTED BUE
[2019-12-23 07:18] VITALS: BP 131/68
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
[2019-12-23 11:00] VITALS: BP 134/73
--- NOTE | 2019-12-23 12:06 | NUR ---
RECEIVED PT'S CARE AROUND 0710; PT. ON BED; AWAKE; DURING ASSESSMENT AWAKE; C/O PAIN WHEN CLEANING SUPRAPUBIC CATHETER; DRESSING CHANGE; AM MEDICATIONS GIVEN; SCHEDULED PAIN MEDICATION GIVEN; WOUND CARE PERFORMED; TURNED FROM SIDE TO SIDE; SR ON THE MONITOR; D/C ORDERS ON PLACE; GLAZIER STAINED GLASS NOTIFIED; REPORT CALLED; NO ANSWER; WILL TRY LATER; MONITORING; ASSESSMENT CHARGED; FOLLOWED POC;
--- NOTE | 2019-12-23 13:44 | NUR ---
Smart Vest Script and application completed per Dr. Whalen and faxed to intake. They have rec'd the referral, script and documentation for the request. Smart Vest provided with [facility] liason and RT's contact info for f/u. They will try to get the vest delievered soon. They are aware the pt is dcing from the hospital back to his "home" [facility]ci. They indicate that they will try to request exception for coverage thru [place] medicaid, work with the facility or offer their bettina application. Alexa-RT at [facility], Gisela-[facility] Liason aware of above and a copy of the script has been placed in the pt's chart copy to be sent with him this afternoon. [facility] ambulance arranged for 2pm transport. Nursing has called report and the dc discharge planner has confirm the dc time with the pt's mother. The dc discharge planner also faxed the update dc summary to [facility] as well.
--- NOTE | 2019-12-23 14:20 | NUR ---
FAXED DC ORDERS/SUMMARY (UPDATED) TO [facility] SPOKE WITH ZACHERY IN ADM SHE RECEIVED ORDERS AND THAT TRANSPORT BY AMBULANCE ARRANGED FOR 1400 TODAY. NOTIFIED PT'S MOTHER (FRANSISCO) OF DC AND TIME OF TRANSPORT.
== END 2019-12-23 14:53 | DRG 870 ==
LOC: ER 22:21 → 3W 12-17 00:21 → EROBS 12-17 00:21 → 2N 12-17 00:21 → 3W 12-17 03:16 → 2N 12-20 21:02
PROVIDERS: Emergency Medicine; Hospitalist; Nurse Practitioner Family; ADMIT Hospitalist
PROC: 5A1955Z Respiratory Ventilation, Greater than 96 Consecutive Hours (ICD-10-PCS; 2019-12-17)
PROC: 0DP68UZ Removal of Feeding Device from Stomach, Via Natural or Artificial Opening Endoscopic (ICD-10-PCS; principal; 2019-12-19)
PROC: 0DH63UZ Insertion of Feeding Device into Stomach, Percutaneous Approach (ICD-10-PCS; principal; 2019-12-19)
PROC: 0DB68ZX Excision of Stomach, Via Natural or Artificial Opening Endoscopic, Diagnostic (ICD-10-PCS; principal; 2019-12-19)
DX: A41.51 Sepsis due to Escherichia coli [E. coli] (principal); L89.153 Pressure ulcer of sacral region, stage 3; G82.50 Quadriplegia, unspecified; J96.21 Acute and chronic respiratory failure with hypoxia; J15.1 Pneumonia due to Pseudomonas; K94.23 Gastrostomy malfunction; E44.1 Mild protein-calorie malnutrition; N39.0 Urinary tract infection, site not specified; L03.115 Cellulitis of right lower limb; G93.40 Encephalopathy, unspecified; G93.1 Anoxic brain damage, not elsewhere classified; A41.89 Other specified sepsis; Z96.0 Presence of urogenital implants; N18.9 Chronic kidney disease, unspecified; I12.9 Hypertensive chronic kidney disease with stage 1 through stage 4 chronic kidney disease, or unspecified chronic kidney disease; E11.22 Type 2 diabetes mellitus with diabetic chronic kidney disease; K29.70 Gastritis, unspecified, without bleeding; K26.9 Duodenal ulcer, unspecified as acute or chronic, without hemorrhage or perforation; B96.20 Unspecified Escherichia coli [E. coli] as the cause of diseases classified elsewhere; B96.5 Pseudomonas (aeruginosa) (mallei) (pseudomallei) as the cause of diseases classified elsewhere; B96.89 Other specified bacterial agents as the cause of diseases classified elsewhere; J40 Bronchitis, not specified as acute or chronic; G40.909 Epilepsy, unspecified, not intractable, without status epilepticus; D64.9 Anemia, unspecified; Y83.8 Other surgical procedures as the cause of abnormal reaction of the patient, or of later complication, without mention of misadventure at the time of the procedure; E87.6 Hypokalemia; Z20.828 Contact with and (suspected) exposure to other viral communicable diseases; K21.9 Gastro-esophageal reflux disease without esophagitis; L97.519 Non-pressure chronic ulcer of other part of right foot with unspecified severity; Z79.899 Other long term (current) drug therapy; Z89.612 Acquired absence of left leg above knee; Z68.23 Body mass index [BMI] 23.0-23.9, adult
CPT/HCPCS: 10081; 10879; 62110; 62900

== ENCOUNTER 2020-03-04 05:50 | Emergency (ER) | payer OTHER ==
[~2020-03-04] VITALS: Ht 172.7 cm; Wt 68.0 kg
--- NOTE | ~2020-03-04 | EMS ---
[address] [address] EMS Patient Care Report Name: COTY DUENAS Room #: REG XIOMARA Alvarez#: [id number] Admission: 03/04/20 Attend Phys: Discharge: Date of : 85 Report #: [id number] THIS REPORT FOR: //name// Report Transmitted: 03/04/2020 05:48 EMS Care Summary [facility] MED-ACT Incident [id number] @ 03/04/2020 05:02 Incident Location [address] [place] [address] Patient COTY DUENAS Male, 34 Years 1985 Patient Address [address] [place] [address] Patient History Tracheostomy,Pneumonia,Quadriplegia,Anoxic Brain Injury, Patient Allergies No known allergies, Patient Medications Docusate Sodium, Atrovent, Chlorthalidone, Ferrous Sulfate, Metoprolol, Baclofen, Hydrocodone, Chief Complaint rule out pneumonia Disposition Transported No Lights/[place] Dispatch Reason Breathing Problem Transported To [facility] Narrative EMS was dispatched for a patient needing to be transported for a culture test. [address] [address] EMS Patient Care Report Name: COTY DUENAS Room #: REG XIOMARA Alvarez#: [id number] Admission: 03/04/20 Attend Phys: Discharge: Date of : 85 Report #: [id number] Upon EMS arrival the patient was lying on his bed alert and breathing. Nursing staff advised the patient was a quadriplegic and has had thick sputum coming out of his trach. EMS assessed the patient and placed him on the monitor. Vitals were taken and a history was gathered. EMS placed a NRB over the patient's trach at 10 lpm. The patient was placed on the cot and taken to the ambulance. EMS reassessed the patient and monitored his vital signs. The patient was taken to [facility] for further evaluation. Initial Vitals @05:37P: 128,BP: 121/81,Pain: 0/10,GCS: 15,SpO2: 97, @05:22P: 116,R: 16,BP: 130/91,Pain: 0/10,GCS: 15,SpO2: 97,Revised Trauma: 12, @05:21P: 123,R: 18,BP: 95/65,Pain: 0/10,GCS: 15,Temp: 98.1F,SpO2: 87,Revised Trauma: 12, @05:33P: 102,R: 18,BP: 124/70,Pain: 0/10,GCS: 15,SpO2: 97,Revised Trauma: 12,TN Suspected: false Assessments @05:19MENTAL:No Abnormalities,SKIN:HEENT:Head/Face: No Abnormalities,Neck/Airway: No Abnormalities,LUNG SOUNDS:General: No Abnormalities,ABDOMEN:General: No Abnormalities,PELVIS//GI:No Abnormalities,EXTREMITIES:Left Leg: Paralysis,Right Arm: Paralysis,Left Arm: Paralysis,Right Leg: Paralysis,PULSE:NEURO:No Abnormalities, Impression Acute Respiratory Distress (Dyspnea) Procedures @05:19ALS AssessmentResponse: UnchangedSucceeded@05:23Oxygen FlowRate: 10 Device: Non Re-breather Mask (NRB) Response: UnchangedSucceeded Timeline 04:58,Call Received 04:58,Psap Call 05:02,Dispatched 05:04,En Route 05:12,On Scene 05:19,At Patient 05:19,ALS Assessment,Response: UnchangedSucceeded, 05:21,BP: 95/65 M,PULSE: 123,RR: 18 R,SPO2: 87 Ox,ETCO2: ,BG: ,PAIN: 0,GCS: 15, 05:22,BP: 130/91 M,PULSE: 116,RR: 16 R,SPO2: 97 Ox,ETCO2: ,BG: ,PAIN: 0,GCS: 15, 05:23,Oxygen FlowRate: 10 Device: Non Re-breather Mask (NRB) Response: UnchangedSucceeded, 05:33,BP: 124/70 M,PULSE: 102,RR: 18 R,SPO2: 97 Ox,ETCO2: ,BG: ,PAIN: 0,GCS: 15, 05:37,BP: 121/81 M,PULSE: 128,RR: R,SPO2: 97 Ox,ETCO2: ,BG: ,PAIN: 0,GCS: 15, [address] [address] EMS Patient Care Report Name: YULISSACOTY Room #: REG XIOMARA Alvarez#: [id number] Admission: 03/04/20 Attend Phys: Discharge: Date of : 85 Report #: [id number] 05:38,Depart Scene 05:47,At Destination 06:06,Call Closed Disclaimer v1.1 Copyright 2020 [employer] This EMS Care Summary contains data elements from the applicable legal record (which may be displayed differently). It is designed to provide pertinent information for the following purposes: continuity of care, clinical quality, and state data reporting. The complete legal record is available to ED staff and administrators of the receiving hospital in [employer]'s Patient Tracker. All data is provided "as is."
[~2020-03-04 05:50] MED LIST changes: +FERROUS SU PER TUBE; +GENTAMICIN SULF15 GM TOP; +IPRAT-ALBUT 0.5-3 ML; +METOPROLOL TART25 MG PER TUBE; +PREVACID 15 MG15 M4 DISSOLVE
[2020-03-04] MEDS ORDERED: PREVACID15 MG PER TUBE (06:14)
[2020-03-04] MEDS ORDERED: PROSTAT LIQUID PER TUBE (06:15)
[2020-03-04] MEDS ORDERED: TRANSDERM-SCOP1 EACH TOP (06:16)
[2020-03-04 07:31] LABS: ABSOLUTE NEUTROPHILS 9.7 thou/uL (1.4-8.2); BASOPHILS 0.5 % (0.0-2.0); HEMATOCRIT 45.3 % (42.0-52.0); HEMOGLOBIN 14.8 gm/dL (14.0-18.0); LYMPHOCYTES 17.6 % (24.0-44.0); MCH 27.5 pg (26.0-34.0); MCHC 32.6 g/dL (28.0-37.0); MCV 84.2 fL (80.0-100.0); MONOCYTES 5.3 % (1.0-8.0); PLATELET COUNT 215 thou/uL (150-400); POLYS 75.6 % (36.0-66.0); RBC 5.38 mil/uL (4.50-6.00); RDW 16.1 % (10.5-14.5); WBC 12.8 thou/uL (4.0-11.0)
[2020-03-04 07:45] LABS: ANION GAP 8 mmol/L (7-16); BUN 11 mg/dL (7-18); CALCIUM 9.1 mg/dL (8.5-10.1); CHLORIDE 98 mmol/L (98-107); CO2 25 mmol/L (21-32); CREATININE 0.6 mg/dL (0.7-1.3); GLUCOSE 100 mg/dL (74-106); POTASSIUM 4.8 mmol/L (3.5-5.1); SODIUM 131 mmol/L (136-145)
[2020-03-04 07:51] LABS: ALBUMIN 3.3 g/dL (3.4-5.0); DIRECT BILIRUBIN < 0.1 mg/dL (<0.1-0.2); SGOT 33 U/L (15-37); SGPT 54 U/L (30-65); TOTAL BILIRUBIN 0.6 mg/dL (0.2-1.0); TOTAL PROTEIN 10.2 g/dL (6.4-8.2)
[2020-03-04 08:38] LABS: URINE BILIRUBIN NEGATIVE (Negative); URINE BLOOD 1+ (Negative); URINE CLARITY CLOUDY; URINE COLOR YELLOW; URINE GLUCOSE-RANDOM* NEGATIVE (Negative); URINE KETONES NEGATIVE (Negative); URINE PROTEIN (DIPSTICK) TRACE (Negative); URINE UROBILINOGEN 0.2 E.U./dl (0.2-1.0)
[2020-03-04 08:46] LABS: URINE LEUKOCYTES-REFLEX 2+ (Negative); URINE NITRITE-REFLEX POSITIVE (Negative)
[2020-03-04 09:00] LABS: CASTS None Seen /LPF (None Seen); SQUAMOUS None Seen /LPF (0-3); TRIPLE PHOSPHATE CRYSTALS >10 Many /LPF (None Seen)
[2020-03-04 09:01] LABS: URINE WBC-REFLEX 6-15 Few /HPF (0-5)
[2020-03-04] MEDS ORDERED: MACRODANTIN50 M1 PER TUBE (12:19)
[2020-03-04 16:42] VITALS: BP 147/90
== END 2020-03-04 17:07 | disposition home or self-care (01) ==
LOC: ER 05:50
PROVIDERS: Emergency Medicine
DX: N39.0 Urinary tract infection, site not specified (principal); K21.9 Gastro-esophageal reflux disease without esophagitis; I12.9 Hypertensive chronic kidney disease with stage 1 through stage 4 chronic kidney disease, or unspecified chronic kidney disease; E11.22 Type 2 diabetes mellitus with diabetic chronic kidney disease; N18.9 Chronic kidney disease, unspecified; Z79.899 Other long term (current) drug therapy

== ENCOUNTER 2020-08-24 08:52 | Emergency (ER) | payer OTHER ==
[~2020-08-24] VITALS: Ht 167.6 cm; Wt 72.1 kg
[~2020-08-24 08:52] MED LIST changes: +MACRODANTIN50 M1 PER TUBE; +PREVACID15 MG PER TUBE; +PROSTAT LIQUID PER TUBE; +TRANSDERM-SCOP1 EACH TOP
[2020-08-24 11:46] LABS: URINE BLOOD 3+ (Negative); URINE CLARITY CLOUDY; URINE COLOR RED; URINE GLUCOSE-RANDOM* NEGATIVE (Negative); URINE KETONES NEGATIVE (Negative); URINE PROTEIN (DIPSTICK) 2+ (Negative); URINE SPECIFIC GRAVITY 1.015 (1.005-1.035)
[2020-08-24 12:00] LABS: ICTOTEST (BILI CONFIRMATORY) Negative (Negative); URINE BILIRUBIN NEGATIVE (Negative); URINE LEUKOCYTES-REFLEX 3+ (Negative); URINE NITRITE-REFLEX POSITIVE (Negative)
[2020-08-24 12:19] LABS: BACTERIA-REFLEX 1-9 Few /HPF (None Seen); CASTS None Seen /LPF (None Seen); CRYSTALS None Seen /LPF (None Seen); SQUAMOUS 0-3 Few /LPF (0-3); URINE WBC-REFLEX 6-15 Few /HPF (0-5)
[2020-08-24 12:31] LABS: ABSOLUTE NEUTROPHILS 8.4 thou/uL (1.4-8.2); BASOPHILS 0.9 % (0.0-2.0); HEMATOCRIT 41.6 % (42.0-52.0); HEMOGLOBIN 13.5 gm/dL (14.0-18.0); LYMPHOCYTES 21.3 % (24.0-44.0); MCH 26.6 pg (26.0-34.0); MCHC 32.5 g/dL (28.0-37.0); MCV 81.7 fL (80.0-100.0); MONOCYTES 6.2 % (1.0-8.0); POLYS 69.6 % (36.0-66.0); RBC 5.08 mil/uL (4.50-6.00); RDW 16.9 % (10.5-14.5)
[2020-08-24 12:40] LABS: CALCIUM 9.3 mg/dL (8.5-10.1); CREATININE 0.5 mg/dL (0.7-1.3); POTASSIUM 4.2 mmol/L (3.5-5.1)
[2020-08-24 13:26] LABS: PLATELET COUNT 247 thou/uL (150-400)
[2020-08-24 13:27] LABS: ANISOCYTOSIS 1+; LARGE PLATELETS RARE
[2020-08-24] MEDS ORDERED: KEFLEX500 M1 PO (13:54)
[2020-08-24 15:00] VITALS: BP 113/79
== END 2020-08-24 15:00 | disposition home or self-care (01) ==
LOC: ER 08:52
PROVIDERS: Emergency Medicine
DX: T83.098A Other mechanical complication of other urinary catheter, initial encounter (principal); N39.0 Urinary tract infection, site not specified; E11.9 Type 2 diabetes mellitus without complications; K21.9 Gastro-esophageal reflux disease without esophagitis; I12.9 Hypertensive chronic kidney disease with stage 1 through stage 4 chronic kidney disease, or unspecified chronic kidney disease; E11.22 Type 2 diabetes mellitus with diabetic chronic kidney disease; N18.9 Chronic kidney disease, unspecified; Z79.899 Other long term (current) drug therapy; Y92.89 Other specified places as the place of occurrence of the external cause

== ENCOUNTER 2020-09-15 20:22 | Emergency (ER) | payer MEDICAID ==
[~2020-09-15] VITALS: Ht 190.5 cm; Wt 68.0 kg
[~2020-09-15 20:22] MED LIST changes: +KEFLEX500 M1 PO
[2020-09-15 21:50] LABS: URINE BILIRUBIN NEGATIVE (Negative); URINE BLOOD 3+ (Negative); URINE CLARITY CLOUDY; URINE COLOR YELLOW; URINE GLUCOSE-RANDOM* NEGATIVE (Negative); URINE KETONES NEGATIVE (Negative); URINE NITRITE-REFLEX NEGATIVE (Negative); URINE PROTEIN (DIPSTICK) 2+ (Negative); URINE UROBILINOGEN 0.2 E.U./dl (0.2-1.0)
[2020-09-15 21:52] LABS: URINE LEUKOCYTES-REFLEX 2+ (Negative)
[2020-09-15] MEDS ORDERED: MACROBID 100 M100 MG PO (21:59)
[2020-09-15 22:01] LABS: AMORPHOUS URATES Moderate /LPF (None Seen); BACTERIA-REFLEX >30 Many /HPF (None Seen); COARSE GRANULAR CASTS 4-10 Moderate /LPF (None Seen); CRYSTALS None Seen /LPF (None Seen); MUCUS 0-3 Light strn/LPF (None Seen); SQUAMOUS None Seen /LPF (0-3); URINE RBC >20 Many /HPF (0-2)
[2020-09-15 23:00] VITALS: BP 103/58
== END 2020-09-15 23:00 | disposition home or self-care (01) ==
LOC: ER 20:22
PROVIDERS: Emergency Medicine
DX: T83.198A Other mechanical complication of other urinary devices and implants, initial encounter (principal); N39.0 Urinary tract infection, site not specified; K21.9 Gastro-esophageal reflux disease without esophagitis; E11.22 Type 2 diabetes mellitus with diabetic chronic kidney disease; I12.9 Hypertensive chronic kidney disease with stage 1 through stage 4 chronic kidney disease, or unspecified chronic kidney disease; N18.9 Chronic kidney disease, unspecified; Z79.899 Other long term (current) drug therapy

== ENCOUNTER 2021-09-27 13:39 | Emergency (ER) | payer MEDICAID ==
[~2021-09-27] VITALS: Ht 190.5 cm; Wt 68.0 kg
[~2021-09-27 13:39] MED LIST changes: +MACROBID 100 M100 MG PO
[2021-09-27 16:46] VITALS: BP 137/80
== END 2021-09-27 16:38 | disposition home or self-care (01) ==
LOC: ER 13:39
DX: K94.23 Gastrostomy malfunction (principal); K21.9 Gastro-esophageal reflux disease without esophagitis; I10 Essential (primary) hypertension; E11.9 Type 2 diabetes mellitus without complications; Z79.899 Other long term (current) drug therapy

== ENCOUNTER 2021-10-01 02:07 | Emergency (ER) | payer MEDICAID ==
[~2021-10-01] VITALS: Ht 180.3 cm
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
[2021-10-01 05:19] VITALS: BP 123/73
== END 2021-10-01 05:29 | disposition home or self-care (01) ==
LOC: ER 02:07
DX: K94.23 Gastrostomy malfunction (principal); I10 Essential (primary) hypertension; K21.9 Gastro-esophageal reflux disease without esophagitis; E11.9 Type 2 diabetes mellitus without complications; Z79.899 Other long term (current) drug therapy

== ENCOUNTER 2021-10-05 20:38 | Inpatient (IN) | payer MEDICAID ==
[~2021-10-05] VITALS: Ht 182.9 cm; Wt 73.5 kg
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
[2021-10-05 21:00] VITALS: BP 132/55
--- NOTE | 2021-10-05 21:15 | NUR ---
ATTEMPT TO IRRIGATE PEG TUBE WITH WATER BUT RESISTENCE IS MET SPRITE IS INSTILLED TO PEG TUBE, ALLOWED TO ST FOR 5 MINUTES, THEN EASILY IRRIGATED. ADVISED.
--- NOTE | 2021-10-05 21:40 | NUR ---
ATTEMPT TO IRRIGATE SUPRA PUBIC CATHETER. EXISTING LANDIS BAG HAS THICK RESIDUE NOTED IN TUBING NO URINE OUTPUT UNABLE TO IRRIGATE CATH ATTEMPT TO DEFLATE CATHETER BALLOON AND I AM UNABLE TO ASPIRATE ANY FLUID FROM EXISTING BALLOON ADVISED
--- NOTE | 2021-10-05 22:00 | NUR ---
MD AT BEDSIDE AND BEDSIDE ULTRASOUND USED TO ATTEMPT TO SEE SUPRAPUBIC CATH HE IS UNABLE TO VISUALIZE BALLOON PER BEDSIDE REPORT PATIENT IS WEARING A BRIEF AND URINE IS NOTED TO HAVE SATURATED THE BRIEF
--- NOTE | 2021-10-05 22:15 | NUR ---
BALLOON IS DEFLATED FROM SUPRAPUBIC CATHETER (FROM PRIOR INSTILLATION AND MANIPULATION BY MD TO ATTEMPT TO IRRIGATE) GENTLE TENSION IS USED TO ATTEMPT TO REMOVE SUPRAPUBIC CATHETER BU RESISTANCE IS MET
--- NOTE | 2021-10-05 23:20 | NUR ---
ATTEMPT TO PASS 14 FR LATEX FREE AND 12 FR LATEX FREE CATHETER THROUGH PENIS TO BLADDER PER MD ORDER RESISTANCE IS FELT 8 FR STRAIGHT CATH IS PLACED TO BLADDER AND I AM ABLE TO DRAIN APPROX 45 MLS OF CLOUDY URINE WITH NOTED SEDAMENT AND MUCOUS. MD IS ADVISED.
[2021-10-06 00:04] LABS: URINE BILIRUBIN NEGATIVE (Negative); URINE BLOOD 3+ (Negative); URINE CLARITY SL CLOUDY; URINE COLOR YELLOW; URINE GLUCOSE-RANDOM* NEGATIVE (Negative); URINE KETONES NEGATIVE (Negative); URINE PROTEIN (DIPSTICK) 2+ (Negative); URINE SPECIFIC GRAVITY 1.015 (1.005-1.035); URINE UROBILINOGEN 0.2 E.U./dl (0.2-1.0)
[2021-10-06 00:08] LABS: URINE LEUKOCYTES-REFLEX 3+ (Negative); URINE NITRITE-REFLEX POSITIVE (Negative)
[2021-10-06 00:46] LABS: CASTS None Seen /LPF (None Seen); CRYSTALS None Seen /LPF (None Seen); MUCUS 0-3 Light strn/LPF (None Seen); SQUAMOUS None Seen /LPF (0-3); URINE RBC 1-2 Rare /HPF (NONE SEEN); URINE WBC-REFLEX 6-15 Few /HPF (0-5)
[2021-10-06 00:57] LABS: ABSOLUTE NEUTROPHILS 6.5 thou/uL (1.4-8.2); EOSINOPHILS 4.4 % (0.0-3.0); HEMATOCRIT 46.7 % (42.0-52.0); HEMOGLOBIN 15.7 gm/dL (14.0-18.0); LYMPHOCYTES 25.5 % (24.0-44.0); MCH 28.8 pg (26.0-34.0); MCHC 33.6 g/dL (28.0-37.0); MCV 85.7 fL (80.0-100.0); PLATELET COUNT 208 thou/uL (150-400); POLYS 62.1 % (36.0-66.0); RBC 5.44 mil/uL (4.50-6.00); RDW 15.7 % (10.5-14.5); WBC 10.5 thou/uL (4.0-11.0)
[2021-10-06 01:01] LABS: CALCIUM 9.2 mg/dL (8.5-10.1); CREATININE 0.5 mg/dL (0.7-1.3)
[2021-10-06 01:08] LABS: POTASSIUM 4.7 mmol/L (3.5-5.1)
--- NOTE | 2021-10-06 01:15 | NUR ---
LIDOCAINE UROJET IS INSTILLED INTO PENIS TO ATTEMPT FOLET CATHETER INSERTION ATTETMPT TO PLACE 10 FR SILICONE CATH AND RESISTANCE IS MET FURTHER ATTEMPTS ARE DC'D AT THIS TIME INCONTINENT CARE IS GIVEN BED CHANGE AND REPOSITIONED
--- NOTE | 2021-10-06 04:57 | NUR ---
ATTEMPT TO STRAIGHT CATH PATIENT PRIOR TO TRANSPORT TO THE FLOOR, UNABLE TO PASS 8 FR CATH, BUT PATIENT DOES SEEM TO BE LEAKING URINE FREELY FROM PENIS
[2021-10-06 05:02] VITALS: BP 124/89
[2021-10-06] MEDS ORDERED: MULTI-DAY PLUS1 EAC1 PER TUBE (06:11)
[2021-10-06] MEDS ORDERED: HYDROCODON-ACE1 EAC7 PER TUBE (06:18)
[2021-10-06] MEDS ORDERED: DIFLUCAN100 MG PER TUBE (06:22)
[2021-10-06] MEDS ORDERED: EUCERIN ORIGIN250 ML TOP (06:25)
[2021-10-06] MEDS ORDERED: ACETIC ACID15 ML IRRIG (06:32)
[2021-10-06] MEDS ORDERED: ACETAMINOPHEN650 M5 PER TUBE (06:36)
[2021-10-06 07:33] VITALS: BP 138/81
--- NOTE | 2021-10-06 07:36 | NUR ---
PT ARRIVED VIA CART TO UNIT. PT IS KNOWN WELL TO UNIT AND [facility]. TRACH SHIELD IN PLACE, TRACH IS #6 SHILEY. 02 IS CURRENTLY AT 45L. PEG TUBE FEEDING STARTED, GLUCERNA 1.2 AT 70ML/HR WITH 150 Q4 WATER FLUSHES. ADMISSION COMPLETED, CARE PLAN SET, AND INTERVENTIONS SET. WOUND ON SACRAL DOCUMENTED AND PICTURE TAKEN. CONSULT FOR UROLOGY TODAY TO FIX SUPRAPUBIC. IMAGING PAPERWORK IS IN CHART.
[2021-10-06 15:13] VITALS: BP 147/60
--- NOTE | 2021-10-06 17:40 | NUR ---
1200 SUPRAPUBIC CATHETER REPLACED, PATENT AND SECURED. GAVE PT A BATH THIS AM AND SACRAL WOUND CHANGED. TUBE FEEDING RESTARTED. PT REPOSITION EVERY 2 HOURS. MOTHER CALLED AND UPDATED ABOOUT PT CARE. DENIES ANY OTHER QUESTIONS. FALL PRECAUTIONS IN PLACE. WILL CONTINUE TO MONITOR.
[2021-10-06 19:24] VITALS: BP 118/78
[2021-10-07 03:11] VITALS: BP 101/62
--- NOTE | 2021-10-07 06:14 | NUR ---
Patient progressing well towards outcome goals. Suprapubic catherter irrigated 100 ml saline, urine output with sediments. Tolerating tube feeding. Turned to sides. Vital signs and rhythm stable. Patient non verbal, contracted. Coccyx decub dressing dry and intact.
[2021-10-07 08:11] VITALS: BP 136/74
[2021-10-07 08:45] VITALS: BP 136/74
[2021-10-07] MEDS ORDERED: AUGMENTIN600 MG/5 M PO (10:25)
--- NOTE | 2021-10-07 12:04 | NUR ---
RECEIVED ORDER FOR EVAL AND TREAT. PT'S MEDICAL HISTORY INCLUDES QUADRIPLEGIA, HX ANOXIC BRAIN INJURY, HX L AKA, CHRONIC TRACH/G TUBE DEPENDENCE. PT'S MOTHER WAS PRESENT FOR SCREENING, AND SHE IS ALSO HIS DPOA AND GUARDIAN. SHE REPORTS THAT HE IS A RESIDENT OF [facility], WHERE HE RECEIVES FULL CARE. PT IS NOT CAPABLE OF COMPLETING ANY BASIC FUNCTIONS REGARDING SELF CARE NOR IS HE ABLE TO FOLLOW ANY DIRECTIONS. PT IS NON VERBAL. HE DID SMILE A FEW TIMES DURING SESSION SPONTANEOUSLY, BUT NO OTHER INDICATION OF COMMUNICATION NOTICED. PT'S UE'S ARE CONTRACTED, FROM SHOULDERS TO FINGERS. OT ATTEMPTED PASSIVE ROM AND STRETCHING. PT EXHIBITS HIGH TONE THROUGHOUT ALL JOINTS WITH FLEXION CONTRACTURES. HE WAS ABLE TO TOLERATE ~1/4 ROM IN LEFT SHOULDER ONLY FOR PASSIVE ROM. HIS MOTHER INDICATED THAT HE WAS RECEIVING SENIOR AUDITOR SERVICES; HOWEVER SHE HAS NOT BEEN AVAILABLE LATELY. PT WOULD BENEFIT FROM RESUMING PASSIVE ROM FOR HIS UE'S ONCE HE RETURNS TO FACILITY. HIS MOTHER STATED THAT SHE THOUGHT HE MAY BE DISCHARGING TODAY. NO FURTHER OT SERVICES NEEDED.
--- NOTE | 2021-10-07 12:16 | NUR ---
INITIAL ASSESSMENT/DISCHARGE NOTE: Received consult. YEIMI reviewed chart and spoke with nursing and attending physician. Pt was admitted from [facility] due to issues regarding suprapubic catheter. Urology consulted. Catheter changed. Pt is medically stable for discharge back to the facility today. Pt with hx quadriplegia. Pt is chronic trach and peg in place. YEIMI faxed clinical info and discharge ppwk to [facility] for review. Confirmed info was received. YEIMI arranged ambulance transportation for 1430. YEIMI met with pt and his mother at bedside. Introduced role of SW. Pt's mother is aware of discharge and agreeable with plan. YEIMI notified [facility] at [facility] of transportation time. Chart copy requested. Nursing provided with number to call report. No additional SW needs identified at this time. YEIMI is available to assist should needs arise.
--- NOTE | 2021-10-07 14:10 | NUR ---
SPOKE WITH INTERNET DATABASE SPECIALIST AT FACILITY AND ASKED TO CALL PT'S MOTHER. CHANGED DRESSING SACRUM AREA WITH CELIA AREVALO. RAD CALL REPORT AND CONTINUE TO ASSESS.
--- NOTE | 2021-10-07 14:14 | NUR ---
TRIED TO CALL REPORT AND WAS TRANSFERED TO AN ANSWERING MACHING. LEFT MESSAGE AND CONTACT INFORMATION.
--- NOTE | 2021-10-07 15:06 | NUR ---
CHANGED DRESSING ON PEGG TUBE.
--- NOTE | 2021-10-07 15:16 | NUR ---
PT TRANSPORTED TO [facility]IA [facility]. IVS AND TELE DISOCNTINUED. PT LEFT AT 1515.
== END 2021-10-07 15:47 | DRG 698 ==
LOC: ER 20:38 → EROBS 10-06 02:08 → 3W 10-06 02:08
PROVIDERS: Emergency Medicine; ADMIT Internal Medicine; ATTEND Internal Medicine
DX: T83.011A Breakdown (mechanical) of indwelling urethral catheter, initial encounter (principal); G82.50 Quadriplegia, unspecified; N39.0 Urinary tract infection, site not specified; G93.1 Anoxic brain damage, not elsewhere classified; E11.9 Type 2 diabetes mellitus without complications; I10 Essential (primary) hypertension; Z20.822 Contact with and (suspected) exposure to COVID-19
CPT/HCPCS: 10879